=== PATIENT | female | born 1965 | race Caucasian/White ===

== ENCOUNTER → 2017-05-06 | Outpatient (CLI) | payer OTHER | LOC: LAB EV 11:18 | DX: N39.0 Urinary tract infection, site not specified (principal) | CPT/HCPCS: 87086 ==

== ENCOUNTER → 2017-05-12 | Outpatient (CLI) | payer OTHER ==
[2017-05-12 15:42] LABS: BASOPHILS ABSOLUTE AUTO 0.03 K/mm3 (0.00-0.23); BASOPHILS PERCENT AUTO 1 % (0-2); EOSINOPHILS ABSOLUTE AUTO 0.02 K/mm3 (0.00-0.68); EOSINOPHILS PERCENT AUTO 0 % (0-6); Hematocrit 38.7 % (33.0-51.0); Hemoglobin 13.3 g/dL (11.5-16.0); IMMATURE GRAN ABSOLUTE AUTO 0.01 K/mm3 (0.00-0.10); IMMATURE GRAN PERCENT AUTO 0 % (0-1); LYMPHOCYTES ABSOLUTE AUTO 2.27 K/mm3 (0.84-5.20); LYMPHOCYTES PERCENT AUTO 36 % (21-46); MONOCYTES ABSOLUTE AUTO 0.27 K/mm3 (0.16-1.47); MONOCYTES PERCENT AUTO 4 % (4-13); Mean Corpuscular HGB 29.2 pg (26.0-34.0); Mean Corpuscular HGB Conc 34.4 g/dL (31.5-36.5); Mean Corpuscular Volume 85 fL (80-100); Mean Platelet Volume 9.6 fL (9.1-12.4); NEUTROPHILS PERCENT AUTO 59 % (41-73); Platelet Count 293 K/mm3 (150-400); RDW Coefficient Variation 12.7 % (11.7-14.2); RDW Standard Deviation 38.9 fL (35.1-46.3); Red Blood Cell Count 4.56 M/mm3 (3.80-5.20)
[2017-05-12 15:50] LABS: Alanine Aminotransfer (ALT/SGP 23 U/L (12-78); Albumin, Blood 4.2 g/dL (3.4-5.0); Albumin/Globulin Ratio 1.2 (0.8-1.8); Alk Phos 74 U/L (40-126); Anion Gap 9 mmol/L (6-16); Aspartate Aminotrans (AST/SGOT 17 U/L (12-37); Bilirubin, Total 0.5 mg/dL (0.1-1.0); Blood Urea Nitrogen 20 mg/dL (8-24); Bun/Creatinine Ratio 21.7 (12.0-20.0); CO2, Blood 26 mmol/L (21-32); Calcium, Blood 9.4 mg/dL (8.5-10.1); Chloride, Blood 104 mmol/L (98-108); Creatinine, Blood 0.92 mg/dL (0.40-1.00); Globulin, Blood 3.6 g/dL (2.2-4.0); Glomerular Filtration Rate >60 (60-); Glucose, Blood 90 mg/dL (70-99); Potassium, Blood 3.8 mmol/L (3.5-5.5); Sodium, Blood 139 mmol/L (136-145); Total Protein, Blood 7.8 g/dL (6.4-8.2)
[2017-05-12 16:31] LABS: Source, Urine Clean Catch
[2017-05-12 16:51] LABS: Appearance, Urine Cloudy (Clear); Color, Urine Yellow (P-Yellow); Glucose Qualitative, Urine Neg (Normal); Ketones, Urine 1+ (Neg); Leukocyte Esterase, Urine 2+ (Neg); Nitrite, Urine Neg (Neg); Protein, Urine Neg (Neg)
[2017-05-12 16:52] LABS: Bacteria Many /hpf; Bilirubin, Urine Neg (Neg); Blood, Urine Neg (Neg); Red Blood Cells, Urine 0-2 /hpf (0-2); Squamous Epithelial Cells Few /hpf (Few); Urobilinogen, Urine NORM (Normal)
== END | disposition home or self-care (01) ==
LOC: LAB EV 15:33
PROVIDERS: Physician Assistant
DX: R34 Anuria and oliguria (principal); R30.0 Dysuria
CPT/HCPCS: 80053; 81001; 85025; 87086

== ENCOUNTER 2023-12-06 14:44 | Inpatient (IN) | payer OTHER ==
[~2023-12-06] VITALS: Ht 162.6 cm; Wt 87.6 kg
[2023-12-06] MEDS ORDERED: CELE100 PO (18:23)
[2023-12-06] MEDS ORDERED: DULO30 PO (18:23)
[2023-12-06] MEDS ORDERED: FENTANYL1 EA10 TOP (18:23)
[2023-12-06] MEDS ORDERED: NORT10 PO (18:24)
[2023-12-06] MEDS ORDERED: OXYC10TA19 PO (18:24)
[2023-12-06] MEDS ORDERED: LYRICA100 M1 PO (18:25)
[2023-12-06] MEDS ORDERED: ELIQUIS5 M2 PO (18:25)
[2023-12-06] MEDS ORDERED: BISA10S PR (18:26)
[2023-12-06] MEDS ORDERED: LIDO700A20 TOP (18:26)
[2023-12-06] MEDS ORDERED: ONDA4ODT MM (18:27)
[2023-12-06] MEDS ORDERED: PANT20 PO (18:27)
--- NOTE | 2023-12-06 18:35 | NUR ---
ARRIVAL TO U 11 @ 1736 PT TRANFERED FROM [facility] BY AMBULACE. 2 AMBULACE STAFF AND 3 MEDICAL STAFF SLID PATIENT FROM [facility] TO MEDICAL BED. PT STATES DISCOMFORT AND PAIN, MOSTLY WITH MOVEMENT OF LEFT ARM. ARM APEARS RED, SWOLLEN AND WARM TO TOUCH. VITALS SIGNS WNL EXCEPT FOR TEMP SLIGHLY ELEVATED AT 100.4. TELEMETRY BOX IN PLACE. PERIPHERAL AND PEDAL PULSES STRONG AND EQUAL. BELONGINGS AT BEDSIDE. AWAITING PROOF COIN COLLECTOR JOSE TO COME SEE PATIENT FOR ADMISSION ORDERS, YULI GARCIA CONTACTED BY NURSING STAFF ABOUT PATIENTS ARRIVAL. PT HAS A MEDIPORT TO THE RIGHT UPPER CHEST THAT IS NOT ACCESSED AT THIS TIME. PT ORIENTED TO ROOM, CALL LIGHT IN REACH, BED LOWEST POSTION. WILL GIVE REPORT TO COMING RN.
[2023-12-06 18:45] VITALS: BP 119/88
[2023-12-06] MEDS ORDERED: OxyCODONE HCL 5 MG TAB PO PRN (19:10)
[2023-12-06] MEDS ORDERED: HYDROmorphone HCl/Pf 1MG SYR IV PRN (20:05)
[2023-12-06] MEDS ORDERED: Ondansetron 4 MG SoluTab MM PRN (20:40)
[2023-12-06] MEDS ORDERED: Lactobacil 2-S.Thermo-Bifido 1 1 Cap PO SCH (21:00)
[2023-12-06] MEDS ORDERED: DULoxetine HCL 60 MG Capsule DR PO SCH (21:00)
[2023-12-06] MEDS ORDERED: NS 1,000 ML IV SCH ×2 (21:00→21:10)
[2023-12-06] MEDS ORDERED: Nortriptyline HCl 10 MG Cap PO SCH (21:00)
[2023-12-06] MEDS ORDERED: Pregabalin 50 MG Capsule PO SCH (21:00)
[2023-12-06] MEDS ORDERED: Acetaminophen 325 MG TABLET PO PRN (21:10)
[2023-12-06 21:15] VITALS: BP 124/90
[2023-12-06 21:37] LABS: BASOPHILS ABSOLUTE AUTO 0.06 K/mm3 (0.00-0.23); BASOPHILS PERCENT AUTO 0 % (0-2); EOSINOPHILS ABSOLUTE AUTO 0.03 K/mm3 (0.00-0.68); EOSINOPHILS PERCENT AUTO 0 % (0-6); Hematocrit 30.9 % (33.0-51.0); Hemoglobin 9.6 g/dL (11.5-16.0); IMMATURE GRAN ABSOLUTE AUTO 0.15 K/mm3 (0.00-0.10); IMMATURE GRAN PERCENT AUTO 1 % (0-1); LYMPHOCYTES ABSOLUTE AUTO 1.12 K/mm3 (0.84-5.20); LYMPHOCYTES PERCENT AUTO 8 % (21-46); MONOCYTES ABSOLUTE AUTO 1.25 K/mm3 (0.16-1.47); MONOCYTES PERCENT AUTO 9 % (4-13); Mean Corpuscular HGB Conc 31.1 g/dL (31.5-36.5); Mean Corpuscular Volume 87 fL (80-100); Mean Platelet Volume 9.4 fL (9.1-12.4); NEUTROPHILS ABSOLUTE AUTO 11.59 K/mm3 (1.96-9.15); NEUTROPHILS PERCENT AUTO 82 % (41-73); Platelet Count 350 K/mm3 (150-400); RDW Coefficient Variation 17.4 % (11.7-14.2); RDW Standard Deviation 53.2 fL (35.1-46.3); Red Blood Cell Count 3.55 M/mm3 (3.80-5.20)
[2023-12-06 21:51] LABS: Anti-Xa UFH, PHA Monitoring 0.86 IU/mL
[2023-12-06 22:00] LABS: Albumin, Blood 2.4 g/dL (3.4-5.0); Albumin/Globulin Ratio 0.4 (0.8-1.8); Bilirubin, Total 0.5 mg/dL (0.1-1.0); Bun/Creatinine Ratio 14.9 (12.0-20.0); Calcium, Blood 9.6 mg/dL (8.5-10.1); Creatinine, Blood 0.74 mg/dL (0.40-1.00); Globulin, Blood 5.9 g/dL (2.2-4.0); Potassium, Blood 3.6 mmol/L (3.5-5.5); Total Protein, Blood 8.3 g/dL (6.4-8.2)
[2023-12-06] MEDS ORDERED: CeFAZolin Sodium 1,000 MG in NS 50 ML IV SCH (22:00)
[2023-12-06] MEDS ORDERED: Heparin Sodium 5000 Units/ML 1ML MDV IV ONE (22:00)
[2023-12-06] MEDS ORDERED: CeFAZolin Sodium 2,000 MG in NS 100 ML IV SCH (22:00)
[2023-12-06] MEDS ORDERED: Heparin Sodium,Porcine/0.5 NS 500 ML IV SCH (22:00)
[2023-12-06] MEDS ORDERED: Vancomycin HCL 2,000 MG in NS 500 ML IV ONE (22:10)
[2023-12-06 23:52] VITALS: BP 106/70
[2023-12-07] VITALS (10 sets, daily range): BP systolic 104–138; BP diastolic 67–81
[2023-12-07 04:54] LABS: BASOPHILS ABSOLUTE AUTO 0.06 K/mm3 (0.00-0.23); BASOPHILS PERCENT AUTO 1 % (0-2); EOSINOPHILS ABSOLUTE AUTO 0.03 K/mm3 (0.00-0.68); EOSINOPHILS PERCENT AUTO 0 % (0-6); Hematocrit 26.8 % (33.0-51.0); Hemoglobin 8.3 g/dL (11.5-16.0); IMMATURE GRAN ABSOLUTE AUTO 0.14 K/mm3 (0.00-0.10); IMMATURE GRAN PERCENT AUTO 1 % (0-1); LYMPHOCYTES ABSOLUTE AUTO 1.19 K/mm3 (0.84-5.20); LYMPHOCYTES PERCENT AUTO 10 % (21-46); MONOCYTES ABSOLUTE AUTO 1.22 K/mm3 (0.16-1.47); MONOCYTES PERCENT AUTO 10 % (4-13); Mean Corpuscular Volume 87 fL (80-100); Mean Platelet Volume 9.7 fL (9.1-12.4); NEUTROPHILS ABSOLUTE AUTO 9.45 K/mm3 (1.96-9.15); NEUTROPHILS PERCENT AUTO 78 % (41-73); Platelet Count 327 K/mm3 (150-400); RDW Coefficient Variation 17.6 % (11.7-14.2); RDW Standard Deviation 53.5 fL (35.1-46.3); Red Blood Cell Count 3.07 M/mm3 (3.80-5.20); White Blood Cell Count 12.09 K/mm3 (4.00-11.30)
[2023-12-07 05:14] LABS: Albumin/Globulin Ratio 0.4 (0.8-1.8); Bilirubin, Total 0.4 mg/dL (0.1-1.0); Bun/Creatinine Ratio 16.2 (12.0-20.0); Calcium, Blood 8.7 mg/dL (8.5-10.1); Creatinine, Blood 0.68 mg/dL (0.40-1.00); Globulin, Blood 4.6 g/dL (2.2-4.0); Potassium, Blood 3.7 mmol/L (3.5-5.5); Total Protein, Blood 6.6 g/dL (6.4-8.2)
[2023-12-07] MEDS ORDERED: Dose Adjust by Pharmacy XX STA ×2 (05:20→13:53)
[2023-12-07] MEDS ORDERED: Heparin Sodium 5000 Units/ML 1ML MDV IV ONE ×2 (05:25→13:55)
[2023-12-07] MEDS ORDERED: Pantoprazole Sodium 20 MG Tab PO SCH (06:00)
--- NOTE | 2023-12-07 06:48 | NUR ---
Shift Summary- Frieda had low grade temps all throughout the night- none that were treated with tylenol. She had frequent bouts of pain, requiring oxycodone and dilauded around the clock- as she stated her pain was 10/10 each time she was asked and very tearful. The pain was noted to be in her chest and her Left arm. NPO at midnight. Heparin started and titrated a few times throughout the night as ordered per pharmacy. IV fluids and antibiotics given as ordered. Frieda did not void throughout the night- around 5am a bladder scan was performed and she was noted to have 800mLs in her bladder- multiple attempts to pee was tried (bedpan and up to BSC) though both were unsuccessful. Straight cath was performed, and Frieda is now resting prior to [facility]'s arrival.
[2023-12-07] MEDS ORDERED: Celecoxib 100 MG Cap PO SCH (09:00)
[2023-12-07] MEDS ORDERED: DULoxetine HCL 30 MG Cap DR PO SCH (09:00)
[2023-12-07] MEDS ORDERED: Lidocaine 4% 1 Patch TOP SCH (09:00)
[2023-12-07] MEDS ORDERED: Vancomycin HCL 1,250 MG in NS 250 ML IV SCH (12:00)
[2023-12-07 13:13] LABS: Hematocrit 26.6 % (33.0-51.0); Hemoglobin 8.3 g/dL (11.5-16.0)
[2023-12-07] MEDS ORDERED: Midazolam HCl 1MG / ML 2ML Vial ONE ×2 (13:51→14:29)
[2023-12-07] MEDS ORDERED: FentaNYL Citrate 50 MCG/ML 2 ML Injection ONE ×2 (13:51→14:30)
[2023-12-07] MEDS ORDERED: Heparin Sodium 1000 Units/ML 10ML MDV ONE ×2 (13:51→13:57)
[2023-12-07] MEDS ORDERED: NS 1,000 ML IV ONE ×2 (13:52→13:57)
[2023-12-07 14:07] LABS: Source, Urine Straight Cath
[2023-12-07 14:09] LABS: Bilirubin, Urine Neg (Neg); Blood, Urine 1+ (Neg); Color, Urine Yellow (P-Yellow); Glucose Qualitative, Urine Neg (Neg); Ketones, Urine Neg (Neg); Leukocyte Esterase, Urine 2+ (Neg); Nitrite, Urine Neg (Neg); Protein, Urine Neg (Neg); Urobilinogen, Urine NORM (Normal)
[2023-12-07 14:25] LABS: Appearance, Urine Hazy (Clear); Bacteria Mod /hpf; Red Blood Cells, Urine 0-2 /hpf (0-2); Squamous Epithelial Cells Rare /hpf (Few)
[2023-12-07] MEDS ORDERED: Ketorolac Tromethamine 30mg Vial ONE (16:06)
--- NOTE | 2023-12-07 17:53 | NUR ---
SUMMARY PT A/O X4. HAS SEVERE PAIN IN L ARM FROM DVT. MEDICATING WITH OXYCODONE AND DILAUDID. PT TAKEN TO PIPEFITTER FOR THROMBECTOMY AND STENT WAS PLACED. BACK TO ROOM AT 1645. RESTARTED HEPARIN PER PHARM CONSULT. RESTARTED IVF. HAS VENOUS ACCESS SITES TO L GROIN, L BRACHIAL, AND L CEPHALIC VEIN. ALL SITES ARE SOFT, NON TENDER, NO SIGN OF BLEEDING. SITTING UP EATING SOME DINNER. NO SIGN OF DISTRESS.
[2023-12-07] MEDS ORDERED: HYDROmorphone HCl/Pf 1MG SYR IV PRN (21:25)
[2023-12-08] MEDS ORDERED: Dose Adjust by Pharmacy XX STA ×4 (00:03→20:11)
[2023-12-08 03:06] VITALS: BP 126/78
--- NOTE | 2023-12-08 04:10 | NUR ---
Shift Summary- Frieda had a relatively good night, compared to the previous night. Pain was better managed today. Given oxycodone and tylenol, with dilauded only twice during the night. The dilauded was also changed from 2mg to 1mg- as the patient no longer liked the way the 2mg dose made her feel as she became more alert and aware of her surroundings than the previous night. Frieda was up to the [facility] with 1p assist- able to void on her own- post void she had 1mL of urine leftover. Antibiotics and heparin given as ordered, IV fluids completed as ordered, and MRSA swab collected without issue. Frieda's three thrombectomy sites are C/D/I and without issue throughout the night (L brachial, L cephalic, and L femoral vein).
[2023-12-08 05:51] LABS: BASOPHILS ABSOLUTE AUTO 0.04 K/mm3 (0.00-0.23); BASOPHILS PERCENT AUTO 0 % (0-2); EOSINOPHILS ABSOLUTE AUTO 0.04 K/mm3 (0.00-0.68); EOSINOPHILS PERCENT AUTO 0 % (0-6); Hematocrit 21.5 % (33.0-51.0); Hemoglobin 6.8 g/dL (11.5-16.0); IMMATURE GRAN ABSOLUTE AUTO 0.16 K/mm3 (0.00-0.10); IMMATURE GRAN PERCENT AUTO 1 % (0-1); LYMPHOCYTES ABSOLUTE AUTO 1.03 K/mm3 (0.84-5.20); LYMPHOCYTES PERCENT AUTO 8 % (21-46); MONOCYTES PERCENT AUTO 9 % (4-13); Mean Corpuscular HGB 27.1 pg (26.0-34.0); Mean Corpuscular HGB Conc 31.6 g/dL (31.5-36.5); Mean Corpuscular Volume 86 fL (80-100); NEUTROPHILS ABSOLUTE AUTO 10.17 K/mm3 (1.96-9.15); NEUTROPHILS PERCENT AUTO 81 % (41-73); Platelet Count 316 K/mm3 (150-400); RDW Coefficient Variation 17.3 % (11.7-14.2); RDW Standard Deviation 53.1 fL (35.1-46.3); Red Blood Cell Count 2.51 M/mm3 (3.80-5.20); White Blood Cell Count 12.54 K/mm3 (4.00-11.30)
[2023-12-08 06:16] LABS: Calcium, Blood 8.9 mg/dL (8.5-10.1); Creatinine, Blood 0.53 mg/dL (0.40-1.00); Potassium, Blood 3.4 mmol/L (3.5-5.5)
[2023-12-08] MEDS ORDERED: NS 500 ML IV SCH ×2 (06:35→08:20)
[2023-12-08] MEDS ORDERED: Potassium Chloride 20 MEQ TabCR PO ONE (07:40)
[2023-12-08 08:03] VITALS: BP 116/69
--- NOTE | 2023-12-08 08:05 | NUR ---
Dr. Mitchell at bedside to see the pt. Blood consent signed and in chart. First attempt to call [facility] to ask about mediport access.
--- NOTE | 2023-12-08 08:11 | NUR ---
Authorization from [facility] to access the pt's mediport. Infusion center staff said, "absolutely, much preferred over a peripheral IV.""
[2023-12-08] MEDS ORDERED: NS 250 ML IV PRN (08:20)
--- NOTE | 2023-12-08 09:14 | NUR ---
medicated for pain 10/17 with oxycodone at this time.
--- NOTE | 2023-12-08 11:06 | NUR ---
Encouraged the pt to reposition frequently in the bed to prevent pressure sores on the back and butocks. She is having a lot of pain in the left arm, and does not want to elevate it because it is so painful to move. We are trying to help with her pain control.
--- NOTE | 2023-12-08 12:04 | NUR ---
Spiritual Care Consult Visited the Pt. at the request of Dr. Osorio Mitchell. Pt. welcomed my visit but displays evidence of being unsettled about a recent recurring cancer diagnosis. Family are at bedside and are attending to her. Son verbalize a request for more pillows. This director enterprise sales gave the request to Pts. SCALE AGENT who promptly retrieved a couple pillows. While pt. displayed evidence of being cool to any spiritual support, the Pt. did verbalize gratitude for the attempt. Will remain available to the Pt. and family.
[2023-12-08 13:14] VITALS: BP 110/70
[2023-12-08 13:15] LABS: Vancomycin, Trough 21.5 ug/mL (5.0-10.0)
--- NOTE | 2023-12-08 14:06 | NUR ---
Pt experienced better pain relief with 2 mg dilaudid and 10 mg oxycodone, given about an hour ago. She is lying in bed, wide awake, talking with her son, her boyfriend Christopher,and grandson Justyn.
[2023-12-08 15:39] VITALS: BP 103/70
--- NOTE | 2023-12-08 15:45 | NUR ---
Palliative care visit to patient; discussed pain relief and bowel care. Call to Dr. Mitchell to request increase on the fentanyl patch tomorrow when due to be changed. Today pt has had better pain control she states than yesterday, with p.o. oxycodone 10 mg and 1-2 mg dilaudid IV being given as often as the PRN orders allow. Pain has been 6-9/10. Bowel care was ordered per home regimen; pt has had no BM since admission on 12/05. Little appetite. Pt has been repositioning in bed, elevating her left arm on 1-2 pillows to help reduce the swelling. Boyfriend Christopher, son Colby and grandson Justyn at the bedside.
[2023-12-08] MEDS ORDERED: FentaNYL 50 MCG Patch TOP SCH (16:00)
[2023-12-08] MEDS ORDERED: Naloxone HCl 0.4MG / ML 1ML Vial IV PRN (16:00)
[2023-12-08 16:45] LABS: Hemoglobin 6.9 g/dL (11.5-16.0)
--- NOTE | 2023-12-08 16:45 | NUR ---
MET WITH PT, FAMILY AND PRIMARY NURSING TEAM IN PT'S ROOM. REVIEWED HOME MEDICATIONS, CURRENT EMAR AND WHAT HAS HELPED WITH PAIN MANAGEMENT IN THE PAST. PT REPORTS AN EXHAUSTIVE LIST OF TOPICALS, OTC ANALGESICS AND NARCOTICS. PT STARTED [employer] AT BEDTIME OF WHICH IS TAKING THE EDGE OFF OF HER PAIN ALLOWING HER TO GET A FEW HOURS ASLEEP AT NIGHT. PT/FAMILY EXPRESS FRUSTRATION RE: "FALLING IN A HOLE AND THE DEPTS DON'T COMMUNICATE." THEY ARE REFERING TO THEIR CARE TEAM AT [facility]. PT IS SCHEDULED FOR AN ONCOLOGY SECOND OPINION WITH [facility] ON 12-15-23. PRIMARY RN TO CALL PROVIDER TO ASK FOR AN INCREASE IN DOSE ON FENTANYL PATCH AND BOWEL CARE ORDERS.
--- NOTE | 2023-12-08 17:57 | NUR ---
pt did not get significantly better relief from the duragesic patch application. She is a little drowsy, but she is still having pain at 7/10 in her left arm.
[2023-12-08 19:31] VITALS: BP 126/80
[2023-12-08] MEDS ORDERED: Docusate Sodium 100 MG Cap PO SCH (21:00)
[2023-12-08] MEDS ORDERED: Sennosides 8.6 MG Tab PO SCH (21:00)
[2023-12-08 23:02] VITALS: BP 117/70
[2023-12-09] VITALS (7 sets, daily range): BP systolic 102–142; BP diastolic 64–80
[2023-12-09] MEDS ORDERED: Dose Adjust by Pharmacy XX STA (02:18)
[2023-12-09 04:37] LABS: BASOPHILS ABSOLUTE AUTO 0.07 K/mm3 (0.00-0.23); BASOPHILS PERCENT AUTO 1 % (0-2); EOSINOPHILS ABSOLUTE AUTO 0.06 K/mm3 (0.00-0.68); EOSINOPHILS PERCENT AUTO 0 % (0-6); Hematocrit 22.2 % (33.0-51.0); Hemoglobin 7.2 g/dL (11.5-16.0); IMMATURE GRAN ABSOLUTE AUTO 0.21 K/mm3 (0.00-0.10); IMMATURE GRAN PERCENT AUTO 2 % (0-1); LYMPHOCYTES ABSOLUTE AUTO 1.21 K/mm3 (0.84-5.20); LYMPHOCYTES PERCENT AUTO 8 % (21-46); MONOCYTES ABSOLUTE AUTO 1.32 K/mm3 (0.16-1.47); MONOCYTES PERCENT AUTO 9 % (4-13); Mean Corpuscular HGB 27.7 pg (26.0-34.0); Mean Corpuscular HGB Conc 32.4 g/dL (31.5-36.5); Mean Corpuscular Volume 85 fL (80-100); Mean Platelet Volume 9.1 fL (9.1-12.4); NEUTROPHILS ABSOLUTE AUTO 11.53 K/mm3 (1.96-9.15); NEUTROPHILS PERCENT AUTO 80 % (41-73); Platelet Count 379 K/mm3 (150-400); RDW Coefficient Variation 17.6 % (11.7-14.2); RDW Standard Deviation 52.9 fL (35.1-46.3); RETICULOCYTE ABSOLUTE 0.0525 M/mm3 (0.0200-0.1100); RETICULOCYTE COUNT PERCENT 2.02 % (0.50-2.50)
[2023-12-09 05:58] LABS: Bun/Creatinine Ratio 12.6 (12.0-20.0); Calcium, Blood 8.8 mg/dL (8.5-10.1); Creatinine, Blood 0.48 mg/dL (0.40-1.00); Percent Saturation 17.4 % (15.0-50.0); Potassium, Blood 3.4 mmol/L (3.5-5.5)
[2023-12-09] MEDS ORDERED: FentaNYL 50 MCG Patch TOP SCH (08:00)
[2023-12-09] MEDS ORDERED: Potassium Chloride 20 MEQ TabCR PO ONE (08:15)
[2023-12-09] MEDS ORDERED: FentaNYL 25 MCG Patch TOP SCH (09:00)
[2023-12-09] MEDS ORDERED: Apixaban 5 MG Tab PO SCH (12:00)
[2023-12-09] MEDS ORDERED: Polyethylene Glycol 3350 17 gm PO PRN (15:45)
--- NOTE | 2023-12-09 17:53 | NUR ---
SHIFT SUMMARY PT A/OX4 AND COOPERAIVE OF MOST CARE, PT REFUSED BEDBATH OR SHOWER TODAY. PT ABLE TO EXPRESS NEEDS. PT VSS THROUGHOUT SHIFT WITH O2 SATS IN THE 90'S ON RA. NO REPORT OF CHEST PAIN/PRESSURE THROUGHOUT SHIFT. NO REPORT OF SOB/DYSPNEA. PT RECIEVED 1 UNIT OF PRBC THIS SHIFT. PT ABLE TO AMBULATE TO BSC WITH 1-2 PERSON ASSIST, TOLERATED FAIR. PT PAIN SLIGHTLY BETTER MANAGED TODAY AFTER RECIEVING INCREASED DOSE OF FENT PATCH YESTERDAY. PT STILL REQUIRING PRN PAIN MEDS. HEP GTT DC'D TODAY AND PT STARTED ON PO THINNER, SEE EMAR.
[2023-12-10 05:31] VITALS: BP 131/81
--- NOTE | 2023-12-10 05:46 | NUR ---
SHIFT NOTE: PT A/OX4 ABLE TO MAKE HER NEEDS KNOWN. SHE IS MED STATUS WITH NO TELE. BP STABLE. SHE IS ON RA WITH SPO2>95%. PAIN HAS BEEN MANAGED WITH Q4 OXYCODONE AND ONE DOSE OF DILAUDID FOR BREAKTHROUGH PAIN WELL A FENTANYL PATCH. HER MEDIPORT ON THE LEFT SIDE OF HER CHEST IS ACCESSED AND SALINE LOCKED. WILL CONTINUE TO MONITOR AND REPORT TO ONCOMING RN
[2023-12-10 05:57] LABS: BASOPHILS ABSOLUTE AUTO 0.05 K/mm3 (0.00-0.23); BASOPHILS PERCENT AUTO 0 % (0-2); EOSINOPHILS ABSOLUTE AUTO 0.04 K/mm3 (0.00-0.68); EOSINOPHILS PERCENT AUTO 0 % (0-6); Hematocrit 27.4 % (33.0-51.0); Hemoglobin 8.6 g/dL (11.5-16.0); IMMATURE GRAN ABSOLUTE AUTO 0.16 K/mm3 (0.00-0.10); IMMATURE GRAN PERCENT AUTO 1 % (0-1); LYMPHOCYTES PERCENT AUTO 8 % (21-46); MONOCYTES ABSOLUTE AUTO 1.14 K/mm3 (0.16-1.47); MONOCYTES PERCENT AUTO 10 % (4-13); Mean Corpuscular HGB Conc 31.4 g/dL (31.5-36.5); Mean Corpuscular Volume 86 fL (80-100); Mean Platelet Volume 8.9 fL (9.1-12.4); NEUTROPHILS ABSOLUTE AUTO 9.48 K/mm3 (1.96-9.15); NEUTROPHILS PERCENT AUTO 81 % (41-73); Platelet Count 420 K/mm3 (150-400); RDW Coefficient Variation 17.4 % (11.7-14.2); RDW Standard Deviation 51.9 fL (35.1-46.3); Red Blood Cell Count 3.18 M/mm3 (3.80-5.20); White Blood Cell Count 11.77 K/mm3 (4.00-11.30)
[2023-12-10 06:16] LABS: Albumin, Blood 1.9 g/dL (3.4-5.0); Albumin/Globulin Ratio 0.4 (0.8-1.8); Bilirubin, Total 0.3 mg/dL (0.1-1.0); Bun/Creatinine Ratio 14.8 (12.0-20.0); Calcium, Blood 9.1 mg/dL (8.5-10.1); Creatinine, Blood 0.54 mg/dL (0.40-1.00); Globulin, Blood 4.8 g/dL (2.2-4.0); Potassium, Blood 3.8 mmol/L (3.5-5.5); Total Protein, Blood 6.7 g/dL (6.4-8.2)
[2023-12-10 07:51] VITALS: BP 145/94
[2023-12-10 16:06] VITALS: BP 121/78
--- NOTE | 2023-12-10 18:34 | NUR ---
SHIFT SUMMARY PT ALERT, ORIENTED X4. PT UP WITH 2 PERSON ASSIST TO BSC. PT REPORTING SEVERE PAIN T/O SHIFT, INCREASED DOSE OF FENT PATCH THIS AFTERNOON, MEDICATED WITH PRN IV AND PO MEDICATIONS; DISCUSSED PAIN MANAGEMENT WITH MDs. PT DENIES SOB, NAUSEA, DIZZINESS AND NUMB/TINGLING. ELEVATED TEMP THIS AM, WITH ELEVATED HR AND INCREASED PAIN, MEDICATED WITH TYLENOL AND PAIN MEDICATIONS, IMPROVED TEMP AND HEART RATE FROM 130'S TO 100'S, MD AWARE. SPO2 >90% ON RA, BREATHING EVEN AND UNLABORED. ABD SOFT, NONTENDER, +BT NOTED T/O. EDEMA NOTED LUE, ATTEMPTED TO ELEVATE T/O SHIFT. OTHER VSS. NO OTHER ACUTE CHANGES NOTED. WILL CONTINUE TO MONITOR.
[2023-12-10 19:22] VITALS: BP 126/73
[2023-12-11 02:22] VITALS: BP 118/73
[2023-12-11 03:51] LABS: BASOPHILS ABSOLUTE AUTO 0.07 K/mm3 (0.00-0.23); BASOPHILS PERCENT AUTO 1 % (0-2); EOSINOPHILS ABSOLUTE AUTO 0.06 K/mm3 (0.00-0.68); EOSINOPHILS PERCENT AUTO 0 % (0-6); Hemoglobin 8.1 g/dL (11.5-16.0); IMMATURE GRAN ABSOLUTE AUTO 0.26 K/mm3 (0.00-0.10); IMMATURE GRAN PERCENT AUTO 2 % (0-1); LYMPHOCYTES ABSOLUTE AUTO 1.07 K/mm3 (0.84-5.20); LYMPHOCYTES PERCENT AUTO 8 % (21-46); MONOCYTES ABSOLUTE AUTO 1.26 K/mm3 (0.16-1.47); MONOCYTES PERCENT AUTO 9 % (4-13); Mean Corpuscular HGB 26.9 pg (26.0-34.0); Mean Corpuscular HGB Conc 31.2 g/dL (31.5-36.5); Mean Corpuscular Volume 86 fL (80-100); Mean Platelet Volume 8.8 fL (9.1-12.4); NEUTROPHILS ABSOLUTE AUTO 11.35 K/mm3 (1.96-9.15); NEUTROPHILS PERCENT AUTO 81 % (41-73); Platelet Count 373 K/mm3 (150-400); RDW Coefficient Variation 17.7 % (11.7-14.2); RDW Standard Deviation 53.1 fL (35.1-46.3); Red Blood Cell Count 3.01 M/mm3 (3.80-5.20); White Blood Cell Count 14.07 K/mm3 (4.00-11.30)
[2023-12-11 04:20] LABS: Calcium, Blood 9.2 mg/dL (8.5-10.1); Creatinine, Blood 0.53 mg/dL (0.40-1.00); Potassium, Blood 3.2 mmol/L (3.5-5.5)
--- NOTE | 2023-12-11 04:31 | NUR ---
SHIFT NOTE: PT A/OX4 ABLE TO MAKE HERE NEEDS KNONW. MEDICAL STATUS PATIENT NOT ON TELE. HR HAS BEEN IN LOW 100S. BP STABLE. SHE DENIES CHEST PAIN/PRESSURE. SHE IS ON RA WITH SPO2>95%. DENIES SOB. SHE HAS NOT HAD A BM IN 4DAY. BOWEL MEDS GIVEN- SEE EMAR. SHE HAS BEEN VERY PAINFUL T/O SHIFT. WILL CONTINUE TO MONITOR AND REPORT TO ONCOMING RN
[2023-12-11] MEDS ORDERED: Potassium Chloride 20 MEQ TabCR PO ONE (07:00)
[2023-12-11 08:00] VITALS: BP 116/71
[2023-12-11] MEDS ORDERED: HYDROmorphone HCl 2 MG Tab PO PRN (09:45)
[2023-12-11 15:31] VITALS: BP 115/84
--- NOTE | 2023-12-11 17:16 | NUR ---
SHIFT SUMMARY DISCUSSED PAIN MANAGEMENT WITH THIS AM, NEW ORDERS WERE PLACED; PT PAINFUL T/O SHIFT, MEDICATED PER EMAR. OTHER VSS. NO OTHER ACUTE CHANGES NOTED. WILL CONTINUE TO MONITOR.
[2023-12-11 20:18] VITALS: BP 128/79
[2023-12-11] MEDS ORDERED: Nortriptyline HCl 10 MG Cap PO SCH (21:00)
[2023-12-11 21:39] VITALS: BP 126/75
[2023-12-12 02:26] VITALS: BP 119/67
--- NOTE | 2023-12-12 05:43 | NUR ---
SHIFT SUMMARY PT ARRIVED ON THE UNIT AT 2130 VIA W/C FROM PCU AND AMBULATED 1P ASSIST TO THE BED. PT REPORTS PAIN BETWEEN 7-9 THROUGHOUT THE NIGHT. PT MEDICATED FOR PAIN PER EMAR. PT A&OX4 AND ANSWERS QUESTIONS APPROPRIATELY. VSS, NO COMPLAINTS OF CP/PRESSURE OR SOB. LUE EDEMATOUS AND PAINFUL. PT SPENT MOST OF SHIFT IN BED WITH EYES CLOSED AND RESPIRATIONS EVEN/UNLABORED. NO ACUTE EVENTS AT THIS TIME. PT LEFT IN A POSITION OF SAFETY WITH FALL PRECAUTIONS IN PLACE. PT REPOSITIONED Q2HRS. CALL LIGHT IN REACH.
[2023-12-12 06:00] LABS: BASOPHILS ABSOLUTE AUTO 0.06 K/mm3 (0.00-0.23); BASOPHILS PERCENT AUTO 1 % (0-2); EOSINOPHILS ABSOLUTE AUTO 0.08 K/mm3 (0.00-0.68); EOSINOPHILS PERCENT AUTO 1 % (0-6); Hematocrit 26.5 % (33.0-51.0); Hemoglobin 8.4 g/dL (11.5-16.0); IMMATURE GRAN ABSOLUTE AUTO 0.24 K/mm3 (0.00-0.10); IMMATURE GRAN PERCENT AUTO 2 % (0-1); LYMPHOCYTES ABSOLUTE AUTO 1.12 K/mm3 (0.84-5.20); LYMPHOCYTES PERCENT AUTO 9 % (21-46); MONOCYTES ABSOLUTE AUTO 1.31 K/mm3 (0.16-1.47); MONOCYTES PERCENT AUTO 10 % (4-13); Mean Corpuscular HGB 27.5 pg (26.0-34.0); Mean Corpuscular HGB Conc 31.7 g/dL (31.5-36.5); Mean Corpuscular Volume 87 fL (80-100); Mean Platelet Volume 9.1 fL (9.1-12.4); NEUTROPHILS ABSOLUTE AUTO 10.14 K/mm3 (1.96-9.15); NEUTROPHILS PERCENT AUTO 78 % (41-73); Platelet Count 414 K/mm3 (150-400); RDW Coefficient Variation 18.2 % (11.7-14.2); Red Blood Cell Count 3.06 M/mm3 (3.80-5.20); White Blood Cell Count 12.95 K/mm3 (4.00-11.30)
[2023-12-12 06:13] LABS: Bun/Creatinine Ratio 17.8 (12.0-20.0); Creatinine, Blood 0.51 mg/dL (0.40-1.00); Potassium, Blood 3.6 mmol/L (3.5-5.5)
[2023-12-12 07:30] VITALS: BP 124/68
[2023-12-12 15:52] VITALS: BP 116/65
[2023-12-12] MEDS ORDERED: HYDROmorphone HCl 2 MG Tab PO PRN (18:00)
--- NOTE | 2023-12-12 18:40 | NUR ---
SHIFT SUMMARY PT CONT LEVEL OF CARE WITH NO ACUTE CHANGES NOTED. PT REMAINS A&O X4 AND ASSIST X1 WITH GAITBELT TO BEDSIDE COMMODE. PT NOTED TO HAVE A GREAT DEAL OF PAIN MEDICATED PER EMAR WITH LITTLE TO NO EFFECTIVENESS NOTED. PHYSICIAN WAS NOTIFIED OF PT PAIN AND NEW ORDERS WAS RECEIVED. PT HAS HAD AT BEDSIDE THROUGHOUT THIS SHIFT. PT NOTED TO HAVE A POOR APPATITE AND HAS REQUESTED THE CLEAR LIQUID ENSURES.
[2023-12-12] MEDS ORDERED: HYDROmorphone HCl/Pf 1MG SYR IV ONE (19:30)
[2023-12-12 20:52] VITALS: BP 112/59
[2023-12-13] MEDS ORDERED: Polyethylene Glycol 3350 17 gm PO PRN (02:00)
[2023-12-13 02:11] VITALS: BP 140/79
[2023-12-13 04:54] LABS: BASOPHILS ABSOLUTE AUTO 0.06 K/mm3 (0.00-0.23); BASOPHILS PERCENT AUTO 1 % (0-2); EOSINOPHILS ABSOLUTE AUTO 0.07 K/mm3 (0.00-0.68); EOSINOPHILS PERCENT AUTO 1 % (0-6); Hematocrit 27.6 % (33.0-51.0); Hemoglobin 8.8 g/dL (11.5-16.0); IMMATURE GRAN PERCENT AUTO 2 % (0-1); LYMPHOCYTES ABSOLUTE AUTO 1.12 K/mm3 (0.84-5.20); LYMPHOCYTES PERCENT AUTO 9 % (21-46); MONOCYTES ABSOLUTE AUTO 1.36 K/mm3 (0.16-1.47); MONOCYTES PERCENT AUTO 10 % (4-13); Mean Corpuscular HGB 27.2 pg (26.0-34.0); Mean Corpuscular HGB Conc 31.9 g/dL (31.5-36.5); Mean Corpuscular Volume 85 fL (80-100); Mean Platelet Volume 8.9 fL (9.1-12.4); NEUTROPHILS ABSOLUTE AUTO 10.44 K/mm3 (1.96-9.15); NEUTROPHILS PERCENT AUTO 79 % (41-73); Platelet Count 406 K/mm3 (150-400); RDW Standard Deviation 55.5 fL (35.1-46.3); Red Blood Cell Count 3.23 M/mm3 (3.80-5.20); White Blood Cell Count 13.25 K/mm3 (4.00-11.30)
[2023-12-13 05:14] LABS: Bun/Creatinine Ratio 19.8 (12.0-20.0); Calcium, Blood 8.8 mg/dL (8.5-10.1); Creatinine, Blood 0.45 mg/dL (0.40-1.00); Potassium, Blood 3.2 mmol/L (3.5-5.5)
--- NOTE | 2023-12-13 06:13 | NUR ---
SHIFT SUMMARY NOC PT A/O X 4. PLEASANT AND COOPERATIVE WITH CARE. VSS. NO ACUTE CHANGES TO REPORT. PT LUCW AND LA PAIN BEING MANAGED PER EMAR. PT RECEIVED ADDITIONAL ONE TIME DOSE DILAUDID IV 1 MG FOR BREAGKTHROUGH PAIN. PT CURRENTLY RESTING WITH BED IN LOWEST POSITION, AND CALL LIGHT WITHIN REACH.
[2023-12-13] MEDS ORDERED: Potassium Chloride 40 MEQ in NS 250 ML IV ONE (06:45)
[2023-12-13] MEDS ORDERED: Potassium Chl 20MEQ/Water100ML 100 ML IV SCH (07:00)
[2023-12-13 07:37] LABS: MISCELLANEOUS TEST SEE SEPERATE
[2023-12-13 08:31] VITALS: BP 137/85
[2023-12-13] MEDS ORDERED: OxyCODONE 10/Acetamin 325 TABLET PO PRN (09:05)
[2023-12-13 16:09] VITALS: BP 111/68
[2023-12-13 20:11] VITALS: BP 103/65
--- NOTE | 2023-12-13 20:27 | NUR ---
SHIFT SUMMARY- PT ALERT AND ORIENTED, HER SPOUSE IS STAYING IN AN RV IN THE PARKING LOT. SPOUSE HAS BEEN AT THE BEDSIDE T/O THE DAY. PT HAS SEVERE PAIN WITH ANY ATTEMPT TO MOBILIZE THE LEFT ARM. THE ARM CONTINUES TO BE WARM AND WITH +3 PITTING EDEMA. DVT WAS REMOVED IN THE HEARING IMPAIRED ITINERANT TEACHER ON 12/08. PT HAS SEVERE LUCW PAIN WELL. SPOKE TO ASHLEY IN MORNING ROUNDS ABOUT ADDING IN SOME OF THE PT HOME MEDS (SUPPLEMENTS) HERBAL REMEDIES. WAS OK WITH ADDING THOSE IN. PT SPOUSE STATES SHE TAKES ADVIL PM AT BEDTIME TO HELP WITH HER NIGHT TIME PAIN MANAGEMENT. DR WAS GOING TO ADD THAT ORDER IN. THIS RN CALLED TO TALK TO HER ABOUT IT THIS EVENING AND SHE WAS WITH ANOTHER PT. STILL AWAITING A CALL BACK. PASSED ON TO NIGHT RN PT MUSHROOMS ARE NOT YET ORDERED WELL THE ADVIL PM. PT IN BED, CALL LIGHT IN REACH AT THE TIME OF BEDSIDE REPORT. NO S&S OF DISTRESS. PT APPEARED TO BE FALLING TO SLEEP AT THE TIME OF REPORT AND APPEARED MORE COMFORTABLE THEN PRIOR.
[2023-12-14 03:13] VITALS: BP 110/56
--- NOTE | 2023-12-14 04:24 | NUR ---
SHIFT SUMMARY PATIENT HAD NO ACUTE CHANGES. AXOX 4 AND 2 ASSIST W/GB TO BSC. MEDIPORT AND PIV INTACT. IV ABX INFUSED. DENIES CHEST PAIN, SOB, AND N/V. VSS/AFEBRILE. REPORTED LEFT ARM PAIN X ONE AND PO DILAUDID 2 MG GIVEN PER EMAR. FAMILY STAYED FIRST FEW HOURS OF SHIFT. COOPERATIVE WITH CARE. CALL LIGHT IN REACH. BED IN LOWEST POSITION. WILL CONTINUE TO MONITOR UNTIL DAY SHIFT NURSE ASSUMES CARE.
[2023-12-14] MEDS ORDERED: Potassium Chloride 20 MEQ TabCR PO ONE (07:00)
[2023-12-14 07:23] LABS: Bun/Creatinine Ratio 18.9 (12.0-20.0); Calcium, Blood 9.3 mg/dL (8.5-10.1); Creatinine, Blood 0.53 mg/dL (0.40-1.00); Potassium, Blood 3.5 mmol/L (3.5-5.5)
[2023-12-14 07:31] VITALS: BP 120/66
[2023-12-14] MEDS ORDERED: Ibuprofen 600 MG Tab PO PRN (07:45)
[2023-12-14] MEDS ORDERED: Cephalexin Monohydrate 500 MG Cap PO SCH (09:00)
[2023-12-14 15:51] VITALS: BP 106/67
[2023-12-14] MEDS ORDERED: HYDMOR2 PO (16:21)
[2023-12-14] MEDS ORDERED: CEPH500 PO (16:21)
[2023-12-14] MEDS ORDERED: NARCAN4 M1 (16:23)
[2023-12-14] MEDS ORDERED: IBUP600 PO (16:23)
[2023-12-14] MEDS ORDERED: VISBIOME 112.51 EACH PO (16:24)
[2023-12-14] MEDS ORDERED: MIRALAX17 GM PO (16:24)
[2023-12-14] MEDS ORDERED: PERCOCET 10-321 EA13 PO (16:24)
--- NOTE | 2023-12-14 18:36 | NUR ---
SHIFT SUMMARY: PT IS A/O X 4, ONE ASSIST, PLEASANT AND COOPERATIVE WITH CARE. PT HAD PAIN THROUGHOUT THE DAY. MANAGED AT THIS TIME WITH CURRENT PAIN MEDICATION REGIMEN. PT DECLINED TO GO TO SNF AND PREFERRED GOING HOME. PER PT SHE STATES SHE WILL BE ABLE TO DO ADL'S AT HOME WITH HER FAMILY'S ASSISTANCE. PT CONTINUES TO HAVE SWOLLEN PAINFUL LEFT ARM. SHE IS TO GO HOME TODAY ONCE HER SON ARRIVES FROM [place]. HE IS EXPECTED AROUND 8 PM. PLAN IS SON WILL DELINQUENCY PREVENTION SOCIAL WORKER PRESCRIPTIONS SPOUSE DROPPED OFF FROM LOCAL [employer] PRIOR TO COMING.
--- NOTE | 2023-12-14 19:47 | NUR ---
PATIENT DISCHARGED WITH PERSONAL BELONGINGS. AND SON PRESENT.
== END 2023-12-14 20:37 | disposition home health service (06) | DRG 854 ==
LOC: PCU 14:44 → MEDS 17:48 → PCU 17:48 → MEDS 12-11 21:29
PROVIDERS: Family Medicine; Student in an Organized Health Care Education/Training Program; ADMIT Hospitalist
PROC: 30233N1 Transfusion of Nonautologous Red Blood Cells into Peripheral Vein, Percutaneous Approach (ICD-10-PCS; principal; 2023-12-06)
PROC: 3E03329 Introduction of Other Anti-infective into Peripheral Vein, Percutaneous Approach (ICD-10-PCS; 2023-12-06)
PROC: 05763DZ Dilation of Left Subclavian Vein with Intraluminal Device, Percutaneous Approach (ICD-10-PCS; 2023-12-07)
PROC: 05783DZ Dilation of Left Axillary Vein with Intraluminal Device, Percutaneous Approach (ICD-10-PCS; 2023-12-07)
PROC: B51N1ZZ Fluoroscopy of Left Upper Extremity Veins using Low Osmolar Contrast (ICD-10-PCS; 2023-12-07)
DX: A41.9 Sepsis, unspecified organism (principal); D62 Acute posthemorrhagic anemia; L03.313 Cellulitis of chest wall; I82.622 Acute embolism and thrombosis of deep veins of left upper extremity; R33.9 Retention of urine, unspecified; K21.9 Gastro-esophageal reflux disease without esophagitis; C50.912 Malignant neoplasm of unspecified site of left female breast; E78.5 Hyperlipidemia, unspecified; D63.0 Anemia in neoplastic disease; Z79.01 Long term (current) use of anticoagulants; Z87.19 Personal history of other diseases of the digestive system; Z90.710 Acquired absence of both cervix and uterus; Z98.51 Tubal ligation status; Z90.13 Acquired absence of bilateral breasts and nipples; Z88.8 Allergy status to other drugs, medicaments and biological substances; Z88.2 Allergy status to sulfonamides; Z79.899 Other long term (current) drug therapy
CPT/HCPCS: 36005; 36415; 36430; 37238; 37239; 75820; 76937; 80048; 80053; 80202; 81001; 82607; 82728; 82746; 83540; 83550; 83605; 84145; 85014; 85018; 85025; 85045; 85520; 85730; 86850; 86860; 86870; 86880; 86900; 86901; 86902; 86905; 86906; 86922; 87040; 97110; 97140; 97162; 97530; 99152; 99153; A9270; C1725; C1769; C1876; C1887; C1894; J0690; J1170; J1642; J1644; J1885; J2250; J2470; J3010; J3370; J3480; J7030; J7040; J7050; P9016; Q9967

== ENCOUNTER 2024-01-16 09:51 | Inpatient (IN) | payer OTHER ==
[~2024-01-16] VITALS: Ht 162.6 cm; Wt 87.6 kg
[2024-01-16] VITALS (10 sets, daily range): BP systolic 87–125; BP diastolic 46–88
[~2024-01-16 09:51] MED LIST: ACET325 PO; BISA10S PR; CELE100 PO; CEPH500 PO; DULO30 PO; ELIQUIS5 M2 PO; FENTANYL1 EA10 TOP; HYDMOR2 PO; IBUP600 PO; LIDO700A20 TOP; LYRICA100 M1 PO; MIRALAX17 GM PO; NARCAN4 M1; NORT10 PO; ONDA4ODT MM; OXYC10TA19 PO; PANT20 PO; PERCOCET 10-321 EA13 PO; SENNA LAXATIVE8.6 MG PO; VISBIOME 112.51 EACH PO
[2024-01-16] MEDS ORDERED: Midazolam HCl 1MG / ML 2ML Vial ONE (12:06)
[2024-01-16] MEDS ORDERED: FentaNYL Citrate 50 MCG/ML 2 ML Injection ONE (12:06)
[2024-01-16] MEDS ORDERED: NS 1,000 ML IV ONE ×4 (12:07→17:15)
[2024-01-16] MEDS ORDERED: NS 250 ML IV ONE (12:07)
[2024-01-16] MEDS ORDERED: Heparin Sodium 1000 Units/ML 10ML MDV ONE ×3 (12:07→16:32)
[2024-01-16] MEDS ORDERED: Ketorolac Tromethamine 30mg Vial ONE (13:06)
[2024-01-16] MEDS ORDERED: HYDROMORPHONE HCL IV ONE (13:15)
[2024-01-16] MEDS ORDERED: Potassium Chloride 20 MEQ TabCR PO ONE (13:25)
[2024-01-16] MEDS ORDERED: HYDROmorphone HCl/Pf 1MG SYR IV ONE (13:25)
[2024-01-16] MEDS ORDERED: NS 500 ML IV ONE ×2 (16:32→23:45)
[2024-01-16] MEDS ORDERED: Protamine Sulfate 50 MG Amp ONE (16:35)
[2024-01-16] MEDS ORDERED: Phenylephrine HCl 100 MCG/ML-NS 10MLSYR (1MG/10ML) ONE (17:53)
--- NOTE | 2024-01-16 19:04 | NUR ---
PT BROUGHT TO PCU-10 BY BED FROM AT APPROX 1900. PT A&O X4. VSS. MONITOR SHOWING ST, HR 120s. SPO2 > 92% ON RA. PT LAYING FLAT IN BED. L GROIN SITE W/ PURSE STRING CLOSURE W/ STOP COCK IN PLACE. CINDI SITE W/ PURSE STRING CLOSURE W/ STOP COCK IN PLACE WELL. PT BEDDING W/ BLOOD SOAKED THROUGH BAUTISTA PAD. 1 UNIT PRBCs INITIATED UPON ARRIVAL TO UNIT. PT REPORTING PAIN TO L ARM & DIFFICULTY MOVING L ARM. PT REPORTS L ARM PAIN EXISTING PRIOR TO PROCEDURE.
[2024-01-16] MEDS ORDERED: Ondansetron HCl 2 MG / ML 2ML Vial IV PRN (20:20)
[2024-01-16] MEDS ORDERED: FLU VACC TS2024-25(6MOS UP)/PF 45 MCG/0.5 ML SYRINGE IM ONE (20:20)
[2024-01-16] MEDS ORDERED: HYDROmorphone HCl/Pf 1MG SYR IV PRN (20:20)
[2024-01-16] MEDS ORDERED: Apixaban 5 MG Tab PO SCH (21:00)
[2024-01-16] MEDS ORDERED: Sennosides 8.6 MG Tab PO SCH (21:00)
--- NOTE | 2024-01-16 21:44 | NUR ---
ASSUMPTION OF CARE ASSUMED CARE OF PATIENT AT 1900. PATIENT ARRIVED TO ROOM A HEART CENTER ADMISSION. PATIENT ALERT, ORIENTED x4, ANSWERING ALL QUESTIONS APPROPRIATELY. PATIENT REPORTS BEING GROGGY FROM PROCEDURE BUT OTHERWISE DOING OK. PATIENT CURRENTLY LAYING FLAT AND IS TO REMAIN FLAT UNTIL AROUND 2029. PATIENT ON TELE READING SR/ST. HYPOTENSIVE, MAP >65. PURSE STRINGS PRESENT IN LEFT UPPER ARM AND LEFT GROIN. NO OOZING AROUND SITES. DENIES ANY PAIN. 1 UNIT PRBC INFUSING. 2100- PATIENT LEFT ARM APPEARS MORE SWOLLEN THAN INITIAL ASSESSMENT. UPPER ARM AND FOREARM MEASURED AND MARKED ON ARM. CALL PLACED TO DR. MENDIOLA WITH UPDATE. ORDERS TO START HEPARIN GTT PER PHARMACY CONSULT. PER DR. MENDIOLA, PATIENT WILL BE GOING BACK TO PERSONAL COUNSELOR EARLY TOMORROW MORNING. ALSO PER DR. MENDIOLA, PATIENT OK TO SIT UP.
[2024-01-16 22:58] LABS: BASOPHILS PERCENT AUTO 0 % (0-2); EOSINOPHILS PERCENT AUTO 0 % (0-6); Hematocrit 20.9 % (33.0-51.0); Hemoglobin 6.4 g/dL (11.5-16.0); IMMATURE GRAN ABSOLUTE AUTO 0.02 K/mm3 (0.00-0.10); IMMATURE GRAN PERCENT AUTO 0 % (0-1); LYMPHOCYTES ABSOLUTE AUTO 0.66 K/mm3 (0.84-5.20); LYMPHOCYTES PERCENT AUTO 11 % (21-46); MONOCYTES ABSOLUTE AUTO 0.13 K/mm3 (0.16-1.47); MONOCYTES PERCENT AUTO 2 % (4-13); Mean Corpuscular HGB 27.4 pg (26.0-34.0); Mean Corpuscular HGB Conc 30.6 g/dL (31.5-36.5); Mean Corpuscular Volume 89 fL (80-100); Mean Platelet Volume 9.6 fL (9.1-12.4); NEUTROPHILS PERCENT AUTO 86 % (41-73); Platelet Count 208 K/mm3 (150-400); RDW Coefficient Variation 16.5 % (11.7-14.2); RDW Standard Deviation 52.5 fL (35.1-46.3); Red Blood Cell Count 2.34 M/mm3 (3.80-5.20); White Blood Cell Count 5.91 K/mm3 (4.00-11.30)
[2024-01-16 23:22] LABS: Albumin, Blood 1.6 g/dL (3.4-5.0); Albumin/Globulin Ratio 0.4 (0.8-1.8); Bilirubin, Total 0.3 mg/dL (0.1-1.0); Bun/Creatinine Ratio 30.9 (12.0-20.0); Calcium, Blood 8.5 mg/dL (8.5-10.1); Creatinine, Blood 0.58 mg/dL (0.40-1.00); Globulin, Blood 4.2 g/dL (2.2-4.0); Potassium, Blood 3.4 mmol/L (3.5-5.5); Total Protein, Blood 5.8 g/dL (6.4-8.2)
[2024-01-16 23:28] LABS: Anti-Xa UFH, PHA Monitoring 0.83 IU/mL; International Normalized Ratio 1.1; Prothrombin Time Results 11.7 Sec (9.7-11.5)
--- NOTE | 2024-01-16 23:42 | NUR ---
UPDATE LEFT UPPER EXTREMITIY CONTINUES TO SWELL. SWELLING IS MIGRATED INTO UPPER SHOULDER/BASE OF NECK AREA. SOME REDNESS NOTED AROUND UPPER SHOULDER/BASE OF NECK. LEFT UPPER MEASUREMENT IS MEASURING 50cm AROUND, INITALLY MEASURED AT 2100 AT 49.5 cm, FOREARM MEASUREMENT REMAINED UNCHANGED AT 39.5cm. LEFT RADIAL PULSE STILL PRESENT, BUT HAND IS COOL TO TOUCH. HEPARIN GTT HAS NOT BEEN STARTED, DR. MENDIOLA AWARE OF THIS. HOSPITALIST JOSE NOTIFIED OF HgB <7 AND UPDATED WITH PATIENT'S STATUS. NEW ORDERS RECIEVED FOR ADDITIONAL UNIT OF BLOOD WELL FLUID BOLUS.
[2024-01-17] VITALS (23 sets, daily range): BP systolic 87–118; BP diastolic 42–73
--- NOTE | 2024-01-17 01:00 | NUR ---
UPDATE DR. MENDIOLA AT BEDSIDE TO ASSESS PATIENT AROUND 0030. ULTRASOUND CALLED TO BEDSIDE FOR IMAGING OF LEFT ARM. IMAGES TAKEN. HEPARIN GTT DC'd PER DR. MENDIOLA AT THIS TIME. PER DR. MENDIOLA, PATIENT IS TO NOT MISS AM ELIQUIS DOSE. PATIENT'S BLOOD PRESSURE CONTINUES TO BE SOFT, HOSPITALIST AND DR. MENDIOLA AWARE. NO OTHER NEW ORDERS.
[2024-01-17] MEDS ORDERED: Lactated Ringer's 500 ML IV ONE (01:55)
--- NOTE | 2024-01-17 02:00 | NUR ---
UPDATE CALL RECEIVED FROM BLOOD BANK REGARDING PATIENT'S ANTIBODIES. DIRECTOR OF CUSTOMER ACQUISITION JANINE UPDATED THIS RN THAT PATIENT IS A HIGH RISK TRANSFUSION AND SHE IS AWAITING CALL FROM HER APPLICATION SUPPORT TECHNICIAN TO RELEASE THE UNIT. CALL PLACED TO HOSPITALIST DR. FERNANDEZ REGARDING PATIENT'S BP CONTINUING TO BE SOFT. ADDITIONAL 500ml LR BOLUS ORDERED.
[2024-01-17 04:27] LABS: Hematocrit 19.9 % (33.0-51.0); Mean Corpuscular HGB 26.7 pg (26.0-34.0); Mean Corpuscular HGB Conc 30.2 g/dL (31.5-36.5); Mean Corpuscular Volume 88 fL (80-100); Mean Platelet Volume 9.7 fL (9.1-12.4); Platelet Count 204 K/mm3 (150-400); RDW Coefficient Variation 16.8 % (11.7-14.2); Red Blood Cell Count 2.25 M/mm3 (3.80-5.20); White Blood Cell Count 5.09 K/mm3 (4.00-11.30)
[2024-01-17 04:51] LABS: Bun/Creatinine Ratio 30.6 (12.0-20.0); Calcium, Blood 8.6 mg/dL (8.5-10.1); Creatinine, Blood 0.56 mg/dL (0.40-1.00); Potassium, Blood 3.5 mmol/L (3.5-5.5)
--- NOTE | 2024-01-17 05:55 | NUR ---
SHIFT SUMMARY PATIENT ALERT AND ORIENTED, ABLE TO MAKE NEEDS KNOWN TO STAFF. SOFT BPs THROUGHOUT THE NIGHT. PATIENT ON RA WITH SPO2 >90%. LEFT ARM AND GROIN SITES INTACT, NO OOZING UNDER TEGADERMS. SEE PREVIOUS NOTES FOR OTHER UPDATES AND REGARDING LEFT ARM SWELLING. 2nd UNIT PRBC STARTED. PATIENT REQUIRED STRAIGHT CATH OVERNIGHT, AROUND 800 OUT. POSSIBILITY THAT PATIENT GOES BACK TO GUIDE EXCURSION THIS MORNING. NO OTHER CHANGES SINCE PREVIOUS UPDATES. WILL REPORT TO DAY SHIFT RN.
[2024-01-17] MEDS ORDERED: Pantoprazole Sodium 20 MG Tab PO SCH (06:00)
[2024-01-17] MEDS ORDERED: OxyCODONE HCL 5 MG TAB PO PRN (08:20)
[2024-01-17 10:20] LABS: Hematocrit 22.5 % (33.0-51.0); Hemoglobin 7.1 g/dL (11.5-16.0)
--- NOTE | 2024-01-17 10:47 | NUR ---
UPDATE CALL PLACED TO PROVIDER. PROVIDER INFORMED PT WITH 9/10 PAIN WHILE RECIEVING IV PAIN MEDS AND BP IN THE 90'S/60'S. LATEST BP OF 95/54. RECIEVED VERBAL ORDER FOR 1 UNIT OF PACKED RED BLOOD CELLS AND FOLLOW UP H+H, ORDERS PLACED.
--- NOTE | 2024-01-17 10:55 | NUR ---
CONTACTED PROVIDER TO CONFIRM PROVIDER AWARE PT IS A HIGH RISK TRANSFUSION, PROVIDER AWARE, NO NEW ORDERS, AWAITING TRANSFUSION OF PRBC'S.
--- NOTE | 2024-01-17 11:17 | NUR ---
UNIT OF PACKED RBC'S CANCELLED PER PROVIDERS ORDER. PLAN TO RECHECK H+H AT 1300 AND SEE WHERE THE HEMOGLOBIN IS AT THAT POINT AND REASSES PLAN OF CARE. WILL CONTINUE TO MONIOR PTS VITALS.
--- NOTE | 2024-01-17 12:20 | NUR ---
ASSUMPTION OF CARE ASSUMED CARE OF PT AROUND 0750. PT ALERT AND ORIENTED, COOPERATIVE TO CARE. SINUS RHYTHM, HR 80'S-90'S, SOFT BP'S 80'S-90'S/60'S, PROVIDER NOTIFIED. LEFT UPPER ARM HEART CENTER ACESS SITE WITH PURSE STRING STILL IN PLACE, LEFT FEMORAL HEART CENTER ACESS SITE WITH PURSE STRING STILL IN PLACE. LEFT EXTREMITY WITH SWELLING, TENDERNESS, PT UNABLE TO MOVE EXTREMITY DUE TO PAIN, PAIN 9/10, MEDICATING PER EMAR. CARDIOLOGY TO BEDSIDE TO LOOK AT LEFT ARM. PT RECIEVED 1 UNIT OF PRBC'S, NOTIFIED PROVIDER OF HEMOGLOBIN, WILL RECHECK H+H AT 1300 AND REEVALUATE. WILL MONITOR PATIENT.
[2024-01-17 14:11] LABS: Hematocrit 19.5 % (33.0-51.0); Hemoglobin 6.3 g/dL (11.5-16.0)
[2024-01-17] MEDS ORDERED: NS 500 ML IV ONE (15:24)
[2024-01-17] MEDS ORDERED: NS 500 ML IV SCH (15:50)
[2024-01-17] MEDS ORDERED: HYDMOR2 PO (16:20)
--- NOTE | 2024-01-17 18:41 | NUR ---
SHIFT SUMMARY PT ALERT AND ORIENTED. PT CONTINUING TO HAVE 9/10 PAIN AND INCREASED SWELLING IN LEFT ARM/SHOULDER, MEDICATING PER EMAR, NO RELIEF WITH MEDICATIONS. CT COMPLETED THIS AFTERNOON OF LEFT ARM. PTS HEMOGLOBIN IS STILL TRENDING DOWN, RECEIVED 1 UNIT OF PRBC'S THIS AFTERNOON, HIGH RISK TRANSFUSION, MD AWARE, CONSENT SIGNED AND IN CHART. PROVIDER TO BED AND REMOVED PURSE STRINGS FROM LEFT UPPER ARM AND LEFT FEMORAL ACSESS SITES. PROVIDER REVIEWED CT RESULTS, RECCOMENDING PALLATIVE CONSULT FOR COMFORT MEASURES. WILL CONTINUE TO MONITOR PT AND REPORT TO DISTRIBUTION AGENT RN.
[2024-01-17 21:48] LABS: Hematocrit 22.9 % (33.0-51.0); Hemoglobin 7.5 g/dL (11.5-16.0)
--- NOTE | 2024-01-17 21:48 | NUR ---
UPDATE CALL PLACED TO DAY HOSPITALIST DR. FRANCO WITH UPDATE. AT SHIFT CHANGE, DR. FRANCO AT BEDSIDE EXPLAINING POTENTIAL OPTIONS TO PATIENT. PATIENT HAS HAD POOR PAIN MANAGMENT T/O DAY PER REPORT. DR. FRANCO CONSULTED PHARMACY ABOUT OPTIONS FOR BETTER PAIN CONTROL. BECAUSE PATIENT IS ON INCREASED DOSE OF FENTYNAL PATCH, PHARMACY APPREHENSIVE ABOUT OFFERING STORAGE BATTERY INSPECTOR. PATIENT CONTINUES TO BE IN PAIN ON INITIAL ASSESSMENT. 1MG DILAUDID GIVEN PER EMAR. PATIENT CONTINUES TO CLENCH BODY, FURROW BROW AND CRY OUT IN PAIN. PATIENT REPORTS THAT DILAUDID ISN'T WORKING. THIS RN AT BEDSIDE WITH PATIENT ATTEMPTING TO REINTERATE POSSIBLE OPTIONS SUCH COMFORT CARE THAT CAN ASSIST PATIENT WITH BEING MORE COMFORTABLE. AT THIS TIME, PATIENT QUIET AND NOT WANTING TO CONVERSE. DR. FRANCO UPDATED. PER DR. FRANCO, THIS RN TO CALL NIGHT HOSPITALIST AND VOICE CONCERNS. CALL PLACED TO HOSPITALIST JOSE WITH UPDATE. ORDER RECEIVED TO INCREASE FREQUENCY OF DILAUDID. PER JOSE, IF PAIN PERSISTS AND PATIENT IS UNABLE TO GET RELIEF, HOSPITALIST IS TO BE UPDATED AND WILL DISCUSS OPTIONS.
[2024-01-17] MEDS ORDERED: HYDROmorphone HCl/Pf 1MG SYR IV PRN (21:50)
[2024-01-18] VITALS: BP 103/56
--- NOTE | 2024-01-18 01:40 | NUR ---
UPDATE PATIENT IN BED AND APPEARS TO BE VERY UNCOMFORTABLE. PATIENT IS NOT COMMUNICATING WITH STAFF AT THIS TIME. WILL OCCASIONALLY TRACK STAFF WITH EYES BUT ONLY FOR BRIEF MOMENTS AND WILL RETURN LOOKING AT CEILING. PATIENT ASKED ABOUT PAIN AND WILL ONLY REPLY WITH "OH MY GOD". PATIENT HAS TEARS IN EYES AND FURROWED BROW. PATIENT WILL WINCE WITH ANY SORT OF TOUCH. UNABLE TO DECIFER IF THIS BEHAVIOUR IS A NEURO CHANGE OR DUE TO NARCOTICS OR TO UNFORTUNATE NEWS PATIENT RECIEVED AT START OF SHIFT. ICU HAND BUFFER AT BEDSIDE WITH THIS RN AND AGREES. IF END OF LIFE CARE SUCH COMFORT CARE BROUGHT UP IN CONVERSATION, PATIENT BECOMES QUIET AND WILL CLOSE EYES.
[2024-01-18 02:00] VITALS: BP 110/56
[2024-01-18 02:30] VITALS: BP 109/59
[2024-01-18 03:00] VITALS: BP 99/65
[2024-01-18 04:30] VITALS: BP 119/52
[2024-01-18 04:51] LABS: Hematocrit 22.9 % (33.0-51.0); Hemoglobin 7.7 g/dL (11.5-16.0); Mean Corpuscular HGB 28.8 pg (26.0-34.0); Mean Corpuscular HGB Conc 33.6 g/dL (31.5-36.5); Mean Corpuscular Volume 86 fL (80-100); Mean Platelet Volume 9.3 fL (9.1-12.4); Platelet Count 206 K/mm3 (150-400); RDW Coefficient Variation 16.3 % (11.7-14.2); RDW Standard Deviation 50.4 fL (35.1-46.3); Red Blood Cell Count 2.67 M/mm3 (3.80-5.20); White Blood Cell Count 6.67 K/mm3 (4.00-11.30)
[2024-01-18 05:23] LABS: Bun/Creatinine Ratio 20.1 (12.0-20.0); Calcium, Blood 8.9 mg/dL (8.5-10.1); Creatinine, Blood 0.55 mg/dL (0.40-1.00)
--- NOTE | 2024-01-18 06:17 | NUR ---
SHIFT SUMMARY PATIENT ALERT, BUT IS IN SEVERE PAIN THIS SHIFT. PATIENT IS UNABLE TO COMMUNICATE NEEDS D/T PAIN. PATIENT IS MOANING AND WILL CRY WHILE STAFF IN THE ROOM. PATIENT CANNOT TOLERATE ANY SORT OF TOUCH OR MOVEMENT WITHOUT WINCING OR WITH TEARS ROLLING DOWN FACE. PATIENT HAS ONLY STATED "OH MY GOD" AND "YES" OR "NO". PATIENT MEDICATED PER EMAR FOR PAIN. LEFT ARM CONTINUES TO SWELL FROM BASE OF NECK TO FINGERTIPS AND IS HOT TO TOUCH. BP STABLE. PATIENT HAS REMAINED ON RA WITH SPO2 >90%. AVENDAÑO IN PLACE DRAINING YELLOW URINE TO GRAVITY. PATIENT GIVEN COMFORT CARE OPTIONS THROUGHOUT THE NIGHT WELL EDUCATION REGARDING COMFORT CARE. THIS RN OFFERED TO CALL FAMILY WELL BUT PATIENT HAS NOT GIVEN ANY ANSWERS TO EITHER. SEE PREVIOUS NOTES FOR UPDATES. WILL REPORT TO DAY SHIFT RN.
[2024-01-18 07:25] VITALS: BP 119/55
[2024-01-18] MEDS ORDERED: LORazepam 1 MG Tab PO PRN (08:25)
[2024-01-18] MEDS ORDERED: Atropine Sulfate 1% Opth Soln 2ML BTL SL PRN (08:30)
[2024-01-18] MEDS ORDERED: Scopolamine Hydrobromide Patch TOP PRN (08:30)
[2024-01-18] MEDS ORDERED: Promethazine HCl 25 MG Tab PO PRN (08:30)
[2024-01-18] MEDS ORDERED: Morphine Sulfate 20 MG/1ML 1 ML Oral Syringe SL PRN (08:30)
--- NOTE | 2024-01-18 08:55 | NUR ---
"Spiritual Care | Nurse Request Pt. is awake in bed when I visit. Pt. displays evidence of distress due to visceral pain. Provided de-escalation and a calming presence. Prayed with Pt. Will remain available to the Pt. and family."
[2024-01-18] MEDS ORDERED: Morphine Sulfate 15 MG TABCR PO SCH (09:00)
[2024-01-18] MEDS ORDERED: LORazepam 2 MG/ML 1ML Injection IV PRN (09:16)
[2024-01-18] MEDS ORDERED: HYDROmorphone HCl/Pf 1MG SYR IV PRN (09:35)
[2024-01-18] MEDS ORDERED: HYDROmorphone HCl 2 MG Tab PO PRN (09:35)
--- NOTE | 2024-01-18 13:14 | NUR ---
"Spiritual Care | Comfort Care | Nurse Request Pt. is on Comfort Care. SO is at bedside. Pt. no longer displays evidence of the pain she experienced this morning. WHile she is awake she is mostly not responsive. Facilitated an introduction to the SO. SO verbalized gratitude for the spiritual care visit and welcomed this product director to return."
--- NOTE | 2024-01-18 13:20 | NUR ---
COMFORT CARE UPON CARE ASSUMPTION THIS AM, PT ALERT, ORIENTED X4, ANSWERING Qs & RESPONDING APPROPRIATELY, SAYING ONLY A FEW WORDS. PT GRIMACING CONSTANTLY & BODY TENSE. MD FRANCO TO BEDSIDE FOR DISCUSSION W/ PT. PT TEARFUL. PT AGREEABLE TO COMFORT CARE & THIS RN CALLING PT S/O & SON. PT RATING PAIN 10/10 W/ PAIN NOW BEYOND ORIGINAL L SHOULDER PAIN W/ PT REPORTING PAIN "EVERYWHERE." PT W/ NO IMPROVEMENT IN PAIN W/ PRN IV DILUAUDID & PO OXYCODONE GIVEN THIS AM. W/ NEW ORDERS FOR PO MS CONTIN, W/ PT REPORT OF "LITTLE BIT" OF IMPROVEMENT. PT ALSO THEN BEING MEDICATED W/ COMFORT CARE PAIN MEDICATIONS W/ SLOW RESPONSE FOR IMPROVEMENT IN PAIN. PT INITIALLY STATING "OH MY GOD" REPETITIVELY, GRIMACING CONSTANTLY & TENSING ENTIRE BODY. PT FACE NOW RELAXED, INTERMITTENTLY GRIMACING, MEDICATING FOR PAIN NEEDED. MD & PALLIATIVE CARE NURSE TO BEDSIDE FOR DISCUSSION W/ PT, PT S/O & PT SON. PT S/O REPORTING PT WOULD WANT TO BE HOME & PT PREVIOUSLY REQUESTING W/ DIGNITY. MD REPORTING PT WILL BE MADE COMFORTABLE POSSIBLE WHILE HERE IN THE HOSPITAL.
[2024-01-18] MEDS ORDERED: Albuterol 2.5 MG/3 ML VIAL INH PRN (13:55)
--- NOTE | 2024-01-18 14:53 | NUR ---
MET WITH PATIENT AND FAMILY. DR. FRANCO WAS AT BEDSIDE. FAMILY IS AGREEABLE TO COMFORTCARE. THEY EXPRESSED A STRONG DESIRE TO TAKE SURENDRA HOME, THEY LIVE AT THE [facility]. CASE MANAGMENT FOLLOWED UP THIS AFTERNOON AND REPORTED THAT HOSPICE INTAKE WOULD BE MONDAY AND REQUESTED HARD SCRIPTS FOR MEDICATIONS UNTIL HOSPICE COULD INTAKE. COORDINATED WITH PC TEAM, PHARMACY AND PROVIDER.
--- NOTE | 2024-01-18 17:04 | NUR ---
MET WITH FAMILY TO DISCUSS CONCERNS ABOUT PATIENT BEING DISCHARGED TOMORROW WHEN HOSPICE WOULD NOT BE ABLE TO DO AN INTAKE UNTIL MONDAY. FAMILY AGREED AND RELAYED THAT THEY WERE WORRIED THAT THEY WOULD NOT BE ABLE TO MANAGE HER PAIN AND WOULD NOT HAVE THE RESOURSES AVALIABLE INCASE THEY NEEDED HELP. RELAYED THIS CONVERSATION TO BEDSIDE RN AND PROVIDER. ASKED PROVIDER ABOUT THE POSIBILITY OF ADDING IN A PATTERN HANGER PUMP WITH A CONTINIOUS DRIP. DR. FRANCO WILL DISCUSS WITH PHARMACY AND ADJUST MEDICATIONS.
[2024-01-18] MEDS ORDERED: HYDROmorphone 1 MG/ML 30 ML Bag IV PRN (17:10)
--- NOTE | 2024-01-18 18:18 | NUR ---
END OF SHIFT PT ON COMFORT CARE. PAIN MANAGEMENT ONGOING. PT GRIMACING, MOANING & TENSING FACE & BODY FREQUENTLY T/O SHIFT. PRN PAIN MEDICATION PROVIDED T/O SHIFT W/ LITTLE IMPROVEMENT. PT FAMILY CONCERNED ABOUT ABILITY TO MANAGE PAIN AT HOME PRIOR TO HOSPICE INITIATION ON MONDAY. PLAN FOR PT TO REMAIN IN HOSPITAL UNTIL ABLE TO DISCHARGE HOME W/ HOSPICE CARE. DILAUDID CINDER DUMP CRANE OPERATOR INITIATED AT APPROX 1800 THIS EVENING. PT NOW SLEEPING. FAMILY & PTs CAT AT BEDSIDE. HEATING PAD APPLIED TO LUE PER PT PREFERENCE. PT NOT TOLERATING REPOSITIONING, PT LOUDLY CRYING OUT W/ MINIMAL REPOSITIONING. PT ALSO RESISTANT TO ORAL CARE. EDUCATION & ENCOURAGEMENT PROVIDED FOR ORAL HYGIENE & BETTER PRN SL PAIN MEDICATION ABSORPTION.
--- NOTE | 2024-01-18 19:36 | NUR ---
CALL TO MD TO REPORT PT PAIN NOT MANAGED W/ DILAUDID EDGE GLUE MACHINE TENDER AT CONTINUOUS 0.3MG/HR & TOO SOON TO INCREASE DRIP RATE PER NURSE NOTIFY ORDER SET BY DAY SHIFT MD. ALSO TOO SOON TO GIVE MORE PRN SL ROXANOL. NIGHT RESIDENT BEBE W/ ORDER TO INCREASE DILAUDID EDGE GLUE MACHINE TENDER BY 0.1MG AT THIS TIME & NOTIFY MD IF NO IMPROVEMENT.
[2024-01-19] MEDS ORDERED: Omeprazole 20 MG CapCR PO SCH (06:00)
--- NOTE | 2024-01-19 06:14 | NUR ---
SHIFT SUMMARY - COMFORT CARE STATUS PATIENT LYING IN BED, UNABLE TO TOLERATE ANY TOUCH OR MOVEMENT. PATIENT WILL CRY OUT IF ANY SORT OF PRESSURE IS RELIEVED OR IF PATIENT HAS ANY MOVEMENT. PATIENT GIVING NONVERBAL QUES PRESENTING THAT SHE IS UNCOMFORTABLE. PATIENT WILL MOAN OUT OCCASIONALLY. PATIENT HAS NOT BEEN ABLE TO SLEEP MUCH AND HAS BEEN LOOKING AT CEILING OFTEN. PATIENT WILL LOOK AT STAFF WHEN IN ROOM BUT QUICKLY RETURNS GAZE TO THE CEILING. DILAUDID LINE STAKER INFUSING DURING THE NIGHT, ALSO MEDICATED FOR RESTLESSNESS PER EMAR. AVENDAÑO IN PLACE DRAINING DARK YELLOW URINE TO GRAVITY. LEFT ARM CONTINUES TO SWELL AND BE HOT TO TOUCH. PATIENT'S BOYFRIEND CAME TO VISIT OVERNIGHT, HE STATES HE IS STAYING VERY CLOSE TO THE HOSPITAL D/T LIVING OUT OF TOWN. NO OTHER CHANGES THIS SHIFT, WILL REPORT TO DAY SHIFT RN.
[2024-01-19] MEDS ORDERED: LORazepam 2 MG/ML 1ML Injection IV PRN (09:45)
[2024-01-19] MEDS ORDERED: HYDROmorphone HCl/Pf 1MG SYR IV PRN (09:45)
[2024-01-19] MEDS ORDERED: HYDROmorphone HCl/Pf 1MG SYR IV ONE (10:00)
[2024-01-19] MEDS ORDERED: Dexamethasone Sodium Phosphate 4 MG/ML 1ML Vial IV SCH (11:15)
[2024-01-19] MEDS ORDERED: Zoledronic Acid 4 MG in NS 100 ML IV ONE (11:55)
[2024-01-19 11:57] VITALS: BP 140/80
[2024-01-19] MEDS ORDERED: Ketorolac Tromethamine 30mg Vial IV SCH (12:00)
--- NOTE | 2024-01-19 13:02 | NUR ---
DISCUSSED CASE WITH INTERDICIPLINARY TEAM. REPORTED THAT PATIENT WAS STILL HAVING UNCONTROLED PAIN. DISCUSSED WITH PROVIDER AND PHARMACY. ADDED ANTI-INFALMITORY. MET WITH FAMILY PROVIDED THERAPUTIC CONVERSATION, AND ALLLOWED SPACE FOR REMINISCING. DR. GORMAN CAME IN DURING MY VISIT. PC WILL CONTINUE TO PROVIDE SUPPORT.
--- NOTE | 2024-01-19 16:20 | NUR ---
SHIFT SUMMARY: PT REMAINS ON COMFORT CARE STATUS. PT RESTING IN ROOM COMFORTABLY. PAIN BETTER CONTROLLED THIS SHIFT. MEDICATIONS ADJUSTED THIS AM, SEE EMAR. DILAUDID MEDIA OPERATOR REMAINS INFUSING @0.6MR/HR. PT REPOSITION TOLERATED. AVENDAÑO CATH REMAINS IN PLACE, DRAINING DARK YELLOW URINE TO GRAVITY. SPOUSE AT BEDSIDE THROUGHOUT THE DAY. FAMILY MEMBERS COMING IN FROM OUT OF STATE THIS EVENING. ORAL CARE PROVIDED Q2. CALL LIGHT IN REACH, WILL REPORT TO ONCOMING RN.
--- NOTE | 2024-01-19 21:55 | NUR ---
BEGINNING OF SHIFT/HAND OFF OF CARE OPENS EYES TO VERBAL STIMULI. GRIMACES, TENSES UP MUSCLES & ARMS WHEN IN DISCOMFORT. MEDICATED W/1MG IV DILAUDID. PER DAY RN REPORT, PT MASTER DATA ANALYST SET TO 0.6MG CONTINUOUS RATE & CAN BE INCREASED 0.1MG Q4, HOWEVER NO ORDER IS PRESENT IN THE EMAR REGARDING INCREASING THE CONTINUOUS MASTER DATA ANALYST RATE. CONFIRMED THIS W/ KIRK Ca ON MEDICAL FLOOR, THE RN TO ASSUME CARE OF PT, MASTER DATA ANALYST SYRINGE W/13ML LEFT. PT TO BE TRANSFERRED TO RM [id number].
--- NOTE | 2024-01-19 22:16 | NUR ---
NURSE NOTE PATIENT TRANSFERRED FROM [facility]. PATIENT ON COMFORT CARE. TRANSPORTED WITH PATIENT. PATIENT APPEARS COMFORTABLE. THIS RN SPOKE WITH PROVIDER ABOUT PAIN MEDICATION INCREASE, WILL CONTINUE CURRENT PAIN MED ADMINISTRATION FOR NOW.
[2024-01-20] MEDS ORDERED: HYDROmorphone HCl/Pf 1MG SYR IV ONE (01:00)
[2024-01-20] MEDS ORDERED: HYDROmorphone HCl/Pf 1MG SYR IV PRN (01:00)
--- NOTE | 2024-01-20 05:11 | NUR ---
COMFORT CARE SHIFT SUMMARY PATIENT IS A TRANSFER FROM [facility]ER IN SHIFT. PATIENT HAS HAD HOURLY SALES STAFF RUNNING AT 0.5MG/HR PATIENT HAS BEEN MEDICATED FREQUENTLY FOR BREAKTHROUGH PAIN. PATIENT HAS BEEN MEDICATED FOR ANXIETY THIS SHIFT. PATIENTS HAS BEEN AT BEDSIDE ALL SHIFT. BED IN LOCKED AND LOWEST POSITION.
--- NOTE | 2024-01-20 17:55 | NUR ---
SHIFT SUMMARY: PATIENT ON COMFORT CARE MEASURE BY CHOICE. PATIENT NONVERBAL, MOANED ON/OFF, OPEN HER EYES c VERBAL AND PAINFUL STIMULI c REPOSITIONING. PATIENT HAS CONTINUES SECURITY ALARM INSTALLER RUNNING AT 0.6 MG/HR. PATIENT MEDICATED FOR BREAKTHROUGH PAIN AND FOR ANXIETY PER EMAR c GOOD EFFECT. PATIENT SPOUSE AND FAMILY AT BEDSIDE VISITING ON/OFF T/O SHIFT. PATIENT RECEIVED BEDBATH AND LINEN CHANGED THIS SHIFT. PATIENT HAS HAD NO PO INTAKE, ORAL CARE, AVENDAÑO FOR COMFORT, PATENT DRAINING VINH COLOR URINE TO GRAVITY. CALL LIGHT IN REACH.
--- NOTE | 2024-01-21 03:32 | NUR ---
SUMMARY- PT REMAINS UNCOMFORTABLE AT TIMES. PT MEDICATED ORDERED. PT FAMILY HAS REMAINED AT BED SIDE. PT REPOSITIONED TOLERATED. AVENDAÑO DRAINING. AVENDAÑO CARE PROVIDED. PT ORAL CARE PROVIDED. CALL LIGHT IN REACH. NO NEW ISSUES NOTED. CALL LIGHT IN REACH.
--- NOTE | 2024-01-21 05:57 | NUR ---
FAMILY REQUEST FAMILY REQUESTS END OF LIFE PAMPHLETS/BOOKS - INFORMATION. I WAS UNABLE TO LOCATE THESE ON THIS FLOOR. I KNOW THAT WE USED TO HAVE SUCH THINGS ON THIS FLOOR IN THE PAST, BUT THEY HAVE BEEN REMOVED OVER TIME. ICU STATED THAT THEY DIDN'T HAVE ANY SUCH INFORMATION EITHER.
--- NOTE | 2024-01-21 17:09 | NUR ---
SHIFT SUMMARY: PATIENT ON COMFORT CARE MEASURE. PATIENT NONVERBAL, SHE OPEN HER EYES TO VERBAL AND PAINFUL STIMULI. PATIENT REPOSITIONED, ORAL CARE AND MEDICATED PER EMAR FOR COMFORT. PATIENT STILL ON CONTINUES ACQUISITIONS LOGISTICS ANALYST AT 0.6 MG/HR. PATIENT BF AND FAMILY AT BEDSIDE T/O SHIFT. CALL LIGHT IN REACH.
--- NOTE | 2024-01-22 05:12 | NUR ---
SHIFT SUMMARY: SURENDRA AROUSES TO PAINFUL STIMULI, SOMETIMES VOICE. AVENDAÑO PATENT. ANY MOVEMENT OR TOUCH TO THE PT'S LEFT ARM CAUSES SIGNIFICANT PAIN BEHAVIOR. MEDICATIONS PER MAR HAVE MAINTAINED AN ADEQUATE LEVEL OF PAIN MANAGEMENT PER FAMILY. IV TO R AC PATENT, DILAUDID PRINT SHOP HELPER AND PIGGYBACK FLUIDS INFUSING. PT HAS BEEN TURNED AND REPOSITIONED FREQUENTLY FAMILY WOULD ALLOW. SHE IS LYING IN BED WITH THE CALL LIGHT IN REACH. WILL GIVE REPORT TO DAY SHIFT RN.
--- NOTE | 2024-01-22 18:34 | NUR ---
SHIFT SUMMARY PT CONT WITH COMFORT CARES THIS SHIFT. PT RESPIRATIONS NOTED TO BE 4/MIN. FAMILY STATED ITS BEEN LIKE THIS FOR A COUPLE OF DAYS. PT NOTED TO OPEN EYE WHEN YOU SAY HER NAME AND LOOK AT YOU. PT HAS BEEN GIVEN PRN MEDICATION FOR PAIN THIS SHIFT.
--- NOTE | 2024-01-23 03:38 | NUR ---
SHIFT SUMMARY: SURENDRA AROUSES TO PAINFUL STIMULI. KATERYNA PELLETIER, PT TURNED AND REPOSITIONED FAMILY AT BEDSIDE ALLOWED. DISCUSSED PRESSURE ULCER PREVENTION AND SKIN CARE. ATTENDS IN PLACE, CLEAN AND DRY. PT HAS NOT TAKEN ANYTHING BY MOUTH FOR AT LEAST THE PAST TWO SHIFTS. IV TO RIGHT AC PATENT, FLUIDS INFUSING ALONG WITH DILAUDID MATERNAL CHILD NURSE AT 0.8 MG/HR. PT MEDICATED FOR BREAKTHROUGH PAIN ACCORDING TO PT'S SYMPTOMS. NO MOTTLING SEEN, MILD LE EDEMA NOTED WHICH WAS NOT PRESENT YESTERDAY. SHE IS LYING IN BED, CALL LIGHT IN REACH OF FAMILY MEMBER AT BEDSIDE. WILL GIVE REPORT TO DAY SHIFT RN.
--- NOTE | 2024-01-23 09:00 | NUR ---
Pt resting comfortably, appears to be sleeping. Spouse at bedside. Breathing even and unlabred. No grimacing.
[2024-01-23 10:18] LABS: MISCELLANEOUS TEST SEE SEPERATE
--- NOTE | 2024-01-23 10:53 | NUR ---
Pt resting, appear to bed sleeping. No grimacing, moaning or tears noted. Family no longer at bedside.
--- NOTE | 2024-01-23 12:48 | NUR ---
PT AWAKE, GRIMACIN, MOANING AND TENSE MOVEMENT NOTED, MEDICATED WITH PER EMAR. BEDBATH COMPLETED. WILL CONTINUE TO MONITOR
--- NOTE | 2024-01-23 17:40 | NUR ---
"Spiritual Care | Nurse Request - Comfort Care At the request of the Pts. attending nurse this outpatient receptionist was called to bedside. Pt. displayed shallow but consistant breaths and was not responsive or tracking. Sat with Pt. Scripture is read. Prayers are given. After some time, family members returned with their dinner to sit at bedside. Family verbalized gratitude for making sure the Pt. was not alone."
--- NOTE | 2024-01-24 05:38 | NUR ---
NOC SUMMARY- PT HAS BEEN RESTING QUIETLY FOR MOST OF SHIFT. PT FAMILY HAVE BEEN PRESENT THROUGHOUT SHIFT. THIS AM PT WAS MOANING IN PAIN. PT TX PER JUN WITH RELIEF. PT CURRENTLY RESTING QUIETLY. PERIODS OF APNEA NOTED. PT AVENDAÑO DRAINING TO GRAVITY. CALL LIGHT IN REACH. PT FAMILY CALL APPROPIATELY FOR PT.
--- NOTE | 2024-01-24 16:29 | NUR ---
SUPPORTIVE VISIT PT IS LYING SUPINE AND WIGGLED HER LEFT LEG OFF OF THE BED. HER EYES HAVE A QUICK FLUTTER AND HER GAZE IS FIXED, UP AND LEFT. THIS PC RN ADVISED PRIMARY RN, PT WOULD BENEFIT FROM ATIVAN HER ANXIETY IS BEING MASKED BY PAIN INDICATORS. THERAPUTIC CONVERSATION WITH BEHZAD ENCARNACION. PC TO REMAIN AVAILABLE NEEDED.
[2024-01-25] MEDS ORDERED: FentaNYL 25 MCG Patch TOP SCH (11:40)
--- NOTE | 2024-01-26 04:35 | NUR ---
SHIFT SUMMARY PT HAS COMFORT CARE MEASURES. SON AND [id number] BY THE BEDSIDE. MEDICATED PER EMAR PRN. PT RESPONDS TO VERBAL STIMULI. FIRE PATROLLER&TKO INFUSING ORDERED. BED AT THE LOWEST POSITION, CALL LIGHT W/I REACH.
--- NOTE | 2024-01-26 08:31 | NUR ---
SUPPORTIVE VISIT THERAPUTIC LISTENING FOR SON, BRENDEN AT BEDSIDE. HE IS STRUGGLING WITH REGRETS AND ANTICIPATORY GREIF. BRENDEN DECLINES RAIL PROJECT ENGINEER VISIT AT THIS TIME. PC TO REMAIN AVAILABLE.
[2024-01-26] MEDS ORDERED: HYDROmorphone HCl/Pf 1MG SYR IV PRN (10:30)
[2024-01-26] MEDS ORDERED: Ketorolac Tromethamine 30mg Vial IV SCH (11:00)
--- NOTE | 2024-01-26 11:33 | NUR ---
RECYCLABLE PRODUCTS SORTER PUMP DOSE ADJUSTED BY MYSELF, NEVILLE POWELL RN, AND ZHANG ANDRE RN.
--- NOTE | 2024-01-26 18:14 | NUR ---
SHIFT SUMMARY PT IS ALERT AND ORIENTED TO SELF AND FAMILY. PT ON COMFORT CARE. MEDICATED FOR PAIN PER JUN. CHAPLAIN RESIDENT PUMP DOSE INCREASED FROM 1.2 TO 1.4 THIS SHIFT. PT ABLE TO SLEEP THIS AFTERNOON. SON AND AT BEDSIDE THROUGHOUT THE SHIFT. RELAYED HIS WISHES TO HAVE THE PT TRANSFER TO THE [facility] TO BE CLOSER TO HOME, CASE MANAGEMENT INFORMED AND ABLE TO EDUCATE THE FAMILY ABOUT THE DIFFICULITES OF FOLLOWING THROUGH WITH THAT. PT AND FAMILY VISITED BY PALLIATIVE CARE THIS SHIFT.
--- NOTE | 2024-01-27 12:29 | NUR ---
ASSESSED PATIENT THIS MORNING. PROVIDED NECK PILLOW AND REPOSITIONED. NO FAMILY IN ROOM AT THIS TIME. DISCUSSED CASE WITH BEDSIDE RN. PC WILL CONTINUE TO PROVIDE SUPPORT
--- NOTE | 2024-01-27 17:57 | NUR ---
SHIFT SUMMARY PT REMAINS ON COMFORT CARE, AND MOSTLY ONLY RESPONSIVE TO VERBAL OR PAINFUL STIMULI. PT'S IN RM MOST OF THE DAY. PT MEDICATED PER EMAR FOR PAIN, MOANING, AND DRAWING UP LEGS. PALLIATIVE CARE AND DR HART BOTH IN TO TALK WITH PT'S . PAIN MEDICATIONS ADJUSTED FOR PAIN CONTROL. PT'S WOULD LIKE TO TAKE PT HOME ON HOSPICE, BUT UNABLE TO DO SO UNTIL PT CAN BE OFF TRADING MANAGER AND IV PUSH MEDICATIONS. FAMILY AT BS AT THIS TIME. PT CURRENTLY RESTING QUIELTY. WILL CONTINUE TO MX.
--- NOTE | 2024-01-28 17:18 | NUR ---
CASE CONFERENCE: PT CONTINUES ON COMFORT CARE, AND CONTINUES TO TELL FAMILY SHE WANTS TO "GO HOME TO [place]." HOSPITALIST IS WORKING TO DECREASE AND STOP MECHANICAL SPECIALIST THE INCREASED FENTANYL PATCH AND ROXANOL APPEAR TO BE WORKING QUITE WELL. FAMILY MEETING HELD TODAY, AND BOTH SON AND S/O WOULD LIKE TO ATTEMPT AGAIN TAKING HER HOME WITH HOSPICE DEPENDING ON HOW SHE DOES WITHOUT THE DILAUDID MECHANICAL SPECIALIST. SUSPECT SHE MAY REMAIN THE SAME, NO INCREASE OR DECREASE OF MECHANICAL SPECIALIST DOSE HAS FAZED HER. WILL RE-EVALUATE TOMORROW WELL TO CHECK WHEN [facility] HAS OPENING.
[2024-01-29] MEDS ORDERED: LORazepam Conc 2 MG/ML - 1ML UDC PO PRN (11:15)
[2024-01-29] MEDS ORDERED: Ondansetron 4 MG SoluTab MM PRN (11:15)
--- NOTE | 2024-01-29 18:29 | NUR ---
SHIFT SUMMARY PT A&O TO SELF. PT ADMITTED DUE TO ACUTE EMBOLISM AND THROMBOSIS OF DEEP VEIN. PT ON COMFORT CARE. PT MOANS IN PAIN, PAIN MANAGED PER EMAR WITH Q2 ATIVAN AND Q1 MORPHINE. TECHNOLOGY ADOPTION MANAGER WAS D/C DURING SHIFT. PT WAS REPOSITIONED Q2HR. PT HAS SLOW RESPIRATIONS. COMFORT CARE ASSESSMENTS COMPLETE. AT BEDSIDE, CALL LIGHT IN REACH. PLAN TO GO HOME ON HOSPICE WITH LIQUID/ORAL PAIN MEDS.
[2024-01-29] MEDS ORDERED: dexAMETHasone 4 MG TAB PO SCH (21:00)
--- NOTE | 2024-01-30 05:22 | NUR ---
SHIFT SUMMARY: SURENDRA AROUSES TO PAINFUL STIMULI, SHE HAS NOT ANSWERED ANY QUESTIONS THIS SHIFT. AVENDAÑO IN PLACE, BAG HANGING ABOVE THE FLOOR. SHE HAS NOT TAKEN ANYTHING PO THIS SHIFT. MEDICATED PER MAR, FAMILY AT BEDSIDE VOICED CONCERN PT'S PAIN HAS NOT BEEN CONTROLLED SUFFICIENTLY. ENCOURAGED FAMILY TO REACH OUT TO THE HOSPICE PROVIDER THEY ARE PLANNING TO USE AND DISCUSS AVAILABLE PAIN MANAGEMENT OPTIONS. WHEN PT IS PAINFUL, SHE MOVES HER LEGS AND SHIFTS HER BODY'S POSITION IN BED. SHE IS LYING IN BED WITH THE CALL LIGHT IN REACH, BED IN LOWEST POSITION. WILL GIVE REPORT TO DAY SHIFT RN.
--- NOTE | 2024-01-30 18:33 | NUR ---
SHIFT SUMMARY PT ON COMFORT CARE. COMFORT CARE ASSESSMENTS COMPLETED. PT WAS REPOSITIONED Q2 HRS AND WAS FLOATED WITH PILLOWS. PT MEDICATED PER EMAR WITH ATIVAN AND MORPHINE FOR PAIN/ANXIETY/AIR HUNGER. PT PAINFUL TO STIMULI. PLAN TO DISCHARGE HOME ON HOSPICE. PT HAS AVENDAÑO INPLACE, MINIMAL OUTPUT. FENTYNAL PATCH WAS REPLACED. FAMILY AT BEDSIDE. PT RESPIRATIONS HAVE BEEN SHALLOW DURING SHIFT.
--- NOTE | 2024-01-31 03:28 | NUR ---
SHIFT SUMMARY: PT UNRESPONSIVE BUT DOES OPEN HER EYES WHEN SPOKEN TO AND MOANS WHEN SHES IN PAIN. REMAINS ON ATIVAN AND ROXANOL FOR PAIN CONTROL AND ANXIETY. REMAINS ON COMFORT CARE AND IS KEPT TURNED AND REPOSITIONED FOR COMFORT. AVENDAÑO CATH INTACT DRAINING DARK VINH URINE. SHES DUE TO DISCHARGE ON WITH HER SON ON HOSPICE. LT ARM REMAINS SWOLLEN AND PAINFUL TO TOUCH. ARM IS ELEVATED ON PILLOWS.
--- NOTE | 2024-01-31 13:35 | NUR ---
"Spiritual care | Comfort Care Prayers are given for the Pt. who is on comfort care and is not responsive. Will remain available to the Pt. and family should the Pt, transition further."
--- NOTE | 2024-01-31 16:39 | NUR ---
Reilly now in chart with assist of bedside RN. Pt's pain/anxiety appear under control at this time. Plan for d/c home with hospice tomorrow. Based on recommendations from Esther, pharmacist at [facility]: Increase Fentanyl patch to 200mcg, change Q 72 hours, continue Roxanol at 20mg hourly as needed for pain, and add Methadone 10mg/mL Begin with 5mg orally 2 to 3 times daily for breakthrough pain, as we were unable to locate a local pharmacy with concentrated dilauded or oxycodone.
--- NOTE | 2024-01-31 17:31 | NUR ---
SHIFT SUMMARY PT HAS BEEN UNRESPONSIVE DURING SHIFT. PT WAS REPOSITIONED EVERY 2 HRS. PT HAS AVENDAÑO, HAD MINIMAL OUTPUT. ORAL CARE COMPLETED. PT'S PICKED UP HARD SCRIPT DURING SHIFT. PLAN IS FOR PT TO BE TRANSFERED HOME BY AMBULANCE TOMORROW. RESPIRATIONS ARE SHALLOW. AUDIBLE SECRETIONS HEARD DURING SHIFT, TREATING SECRETIONS WITH ATROPINE DROPS.
--- NOTE | 2024-02-01 04:34 | NUR ---
SHIFT SUMMARY: PT HAS BEEN NONRESPONSIVE BUT DOES OPEN HER EYES AND MOAN WHEN YOU GO TO MOVE HER. SHE REMAINS ON ROXANOL FOR PAIN CONTROL. REMAINS ON COMFORT CARE. LT ARM REMAINS SWOLLEN AND IS ELEVATED ON PILLOWS. SHES KEPT TURNED AND REPOSITIONED FOR COMFORT. AVENDAÑO CATH INTACT DRAINING DARK VINH URINE. SHES DUE TO DISCHARGE TO HOME TODAY TO [place] WITH HER FAMILY.
== END 2024-02-01 12:15 | disposition hospice, home (50) | DRG 271 ==
LOC: PCU 09:51 → MHTC 09:51 → PCU 15:52 → MHTC 15:53 → PCU 15:53 → MHTC 15:53 → PCU 15:54 → MEDS 01-17 15:09 → PCU 01-17 15:09 → MEDS 01-19 21:55
PROVIDERS: Internal Medicine; Nurse Practitioner Acute Care; Student in an Organized Health Care Education/Training Program; ADMIT Student in an Organized Health Care Education/Training Program
PROC: 05C63ZZ Extirpation of Matter from Left Subclavian Vein, Percutaneous Approach (ICD-10-PCS; principal; 2024-01-16)
PROC: 05H Upper Veins, Insertion (ICD-10-PCS; 2024-01-16)
PROC: B54CZZZ Ultrasonography of Left Lower Extremity Veins (ICD-10-PCS; 2024-01-16)
PROC: 30233N1 Transfusion of Nonautologous Red Blood Cells into Peripheral Vein, Percutaneous Approach (ICD-10-PCS; 2024-01-17)
DX: T82.868A Thrombosis due to vascular prosthetic devices, implants and grafts, initial encounter (principal); C79.51 Secondary malignant neoplasm of bone; I82.A12 Acute embolism and thrombosis of left axillary vein; D62 Acute posthemorrhagic anemia; I82.B12 Acute embolism and thrombosis of left subclavian vein; D63.8 Anemia in other chronic diseases classified elsewhere; C50.912 Malignant neoplasm of unspecified site of left female breast; K21.9 Gastro-esophageal reflux disease without esophagitis; E78.5 Hyperlipidemia, unspecified; Y83.9 Surgical procedure, unspecified as the cause of abnormal reaction of the patient, or of later complication, without mention of misadventure at the time of the procedure; Z90.710 Acquired absence of both cervix and uterus; R00.0 Tachycardia, unspecified; Z98.51 Tubal ligation status; Z88.5 Allergy status to narcotic agent; Z88.0 Allergy status to penicillin; Z90.12 Acquired absence of left breast and nipple; Z51.5 Encounter for palliative care; Z88.2 Allergy status to sulfonamides; Z88.8 Allergy status to other drugs, medicaments and biological substances; Z79.01 Long term (current) use of anticoagulants; Z79.899 Other long term (current) drug therapy; Z79.891 Long term (current) use of opiate analgesic; Z87.19 Personal history of other diseases of the digestive system
CPT/HCPCS: 36011; 36415; 36430; 37187; 37238; 71260; 73201; 74177; 75820; 76937; 80048; 80053; 85014; 85018; 85025; 85027; 85520; 85610; 85730; 86850; 86870; 86900; 86901; 86902; 86920; 86922; 93971; 99152; 99153; A9270; C1725; C1757; C1769; C1876; C1887; C1894; C2623; J1100; J1170; J1644; J1885; J2060; J2250; J2371; J2405; J2470; J2720; J3010; J3489; J7030; J7040; J7050; J7120; P9016; Q9967